=== PATIENT | male | born 1960 | race Caucasian/White ===

== ENCOUNTER 2020-05-19 05:21 | Observation (INO) | payer MEDICARE, SELFPAY ==
[2020-05-19] VITALS (9 sets, daily range): BP systolic 100–163; BP diastolic 56–129; PULSE 76–93; RESP 12–24; TEMP 36.6–37.5; O2SAT 93–99; BMI 43.2; BMI 43.3
--- NOTE | 2020-05-19 | FLU_PTH ---
PATIENT: MORENO GARCIA LOC: MS3 U#:[id number] AGE/SX: 60/M ROOM: HI325 RE05/19/[address]: Dr. Yves Garcia DO : 1960 BED: 1 DIS: 05/23/2020 SPEC #: [id number] RECD: 05/19/20 14:08 STATUS: SONIA NAM #: [id number] INES: 05/19/20 00:[address]: Darrion Manuel DEPT: CYTOLOGY RECD BY: Tamiko Camara ENTERED: 05/22/20 07:13 SP TYPE: Fluid OTHR DR: MD Dr. Guerrero Guevara MD Dr. Joseph Agyepong, MD Ryan Baltes, NP-C Tissues: PARACENTESIS FLUID Procedures: Special Stain Group II Surgery Specimen Level IV Cytospin Fluid HEADER OPERATION: Ultrasound-guided right paracentesis PRE-OP DIAGNOSIS: Dyspnea TISSUE SUBMITTED: Paracentesis fluid for cytology DIAGNOSIS CYTOLOGY Paracentesis fluid for cytology (cytospin and cell block): Negative for malignant cells. See comment. IESHA:nallely 05/23/2020 COMMENT Clinical correlation and appropriate follow up are necessary. CYTOLOGY STUDY Slides are reviewed. CYTOLOGY GROSS Received is 80 ml of maria del rosario, cloudy fluid labeled with the patient's name and and designated per the requisition as paracentesis. Submitted for cytology preparation including cell block. / nallely 05/22/2020 TC:5 CPT: 92265, 28983
--- NOTE | 2020-05-19 05:31 | US_ITS ---
PROCEDURE: Ultrasound guided paracentesis. DATE OF EXAMINATION: 05/19/2020. INDICATION: Male, 60 years old. Ascites. PHYSICIAN: Guerrero Mcpherson M.D. TECHNIQUE: The risks, benefits, and alternatives to the procedure were explained to the patient. The specific risks of bleeding, infection, and damage to bowel were detailed and accepted. Witnessed informed consent was obtained. The abdomen was ultrasonographically surveyed. An appropriate pocket of fluid was identified at the right lower quadrant. The skin were cleaned and prepped in the usual sterile fashion. Using ultrasound guidance, the peritoneal cavity was accessed with a 5-Belarusian paracentesis needle/catheter system. The trocar was removed. A total of 4500 ml of maria del rosario-colored fluid were removed from the peritoneal cavity. A 100 mL sample was sent to laboratory for analysis. The catheter was removed and a sterile dressing was applied. The procedure was well tolerated. US/Paracentesis with US IMPRESSION: Ultrasound guided paracentesis. Electronically Signed: Guerrero Mcpherson, at 14:40 EST , Service support ,
--- NOTE | 2020-05-19 05:34 | HP.PCM_ITS ---
Problem List (1) Dyspnea Status: Acute (2) End stage liver disease Status: Acute History of Present Illness Date of Admission: 05/19/20 Chief Complaint: Dyspnea History was obtained from emergency department doctor at [facility] and from patient's via phone as patient is lethargic and unable to articulate a consistent and reliable history. Patient is a 60-year-old male with a significant history of endstage; Liver disease; prediabetes/diabetes; former tobacco abuse; obstructive sleep apnea and on hospice who presents to the [facility] emergency department with shortness of breath. Patient was made hospice about a day ago. Patient was sent to the ED by the squad. His symptoms started on the same day of presentation. Hospice started patient on oxygen. Also patient was confused above his baseline and he was stumbling while going to the bathroom. His links his increased confusion with Ambien which was given to him. Patient typically has insomnia and drink alcohol to aid him sleep. Within a week he drinks about a bottle of whiskey. Hospice was planning to help patient schedule an outpatient paracentesis but with his shortness of breath hospice team wanted patient to get paracentesis as soon as possible. Because [facility] ED cannot provide a paracentesis even if patient was to stay over a decision was made to transfer patient to our hospital ([facility]). At [facility] reportedly patient's potassium was 2.8. Calcium was 6.8. Magnesium was 0.9. BNP was 363. His ammonia level was less than 10. His lipase was 216. Chest x-ray was negative. Patient received replacement of depleted electrolyte. Emergency department doctor reports bedside ultrasound of ascites. His white count was 4.8. His hemoglobin was 9.7 and his platelet was 50. Patient has lower body swelling which includes scrotum; and bilateral lower extremities. Patient is on spironolactone at home. Patient was started on Macrobid about a week ago for UTI. Patient does not take his Macrobid accurately as prescribed. He still has 7 capsules of the Macrobid left. His reported that Hospice has diagnosed patient with cellulitis of b ilateral feet. Emergency department doctor believes that patient has venous stasis and not cellulitis. The patient's report that Hospice is waiting for sensitivities from urine culture to know which antibiotics to start for cellulitis. Urine culture was sent by the patient's PCP. Patient's does not know results of urine culture yet. Emergent department doctor reported that bedside ultrasound showed ascitic fluid. reports that in March 2020 CT showed liver mass/tumor. MRI was recommended at that time but patient declined MRI. ED doc who read portions of the interpretation of CT abdomen done in March [address] showed echogenic and cirrhotic liver. Past Medical History Medical History: Medical History (Last Updated 05/19/20 @ 05:[address] Haider Lange MD) End stage liver disease K72.90 Allergies acetaminophen [From Tylenol] Adverse Reaction (Unknown, Verified 05/19/20 04:52) makes ears ring Home Medications: Ambulatory Orders Medication Instructions Recorded Carvedilol [Coreg] 25 mg PO BID 05/19/20 Milk Thistle 150 mg PO DAILY 05/19/20 Nitrofurantoin Macrocrystals 100 mg PO Q12 05/19/20 [Macrobid] Omeprazole 20 mg PO DAILY 05/19/20 Paroxetine HCl [Paxil] 30 mg PO QHS 05/19/20 Spironolactone [Aldactone] 25 mg PO BID 05/19/20 Zolpidem Tartrate [Ambien] 10 mg PO QHS 05/19/20 Surgical History: - - Bilateral knee arthroscopic surgery. Hernia repair x3. Abdominal muscle repair. Rotator cuff repair. Septoplasty. Carpal tunnel surgery x2. Finger tendon repair. Psychiatric History: Depression Smoking Status: Former smoker - Smoked when he was a teenager Alcohol: Heavy - *Family History Maternal History Items: - - Depression Paternal History Items: COPD, Diabetes Review of Systems Constitutional: Denies: Chills, Fever, Weight Change HEENT: Denies: Head Aches, Sinus Congestion, Sinus Drainage Cardiovascular: Denies: Chest Pain, Palpitations Respiratory: Reports: Shortness of Breath. Denies: Cough, Sputum production Gastrointestinal: Denies: Abdominal Pain, Nausea, Vomiting Genitourinary: Denies: Dysuria Musculoskeletal: Denies: Joint Pain, Joint Tenderness Skin: Denies: Rash, Wounds Neurological: Reports: Confusion. Denies: Focal weakness, Numbness, Tingling Psychiatric: Denies: Anxiety, Depression, Homicidal Ideations, Suicidal Ideations Hematologic/ Lymphatic: Denies: Easy Bruising, Easy Bleeding VTE Information - Inpt Only VTE Present on Admission: No VTE Mechan Device Prophylaxis: SCD's VTE Pharm Prophylaxis ordered?: No Patient Problems: Active and Suspected Problems (Last Updated 05/19/20 @ 05:[address] Haider Lange MD) Dyspnea (Acute) End stage liver disease (Acute) - Physical Exam Vitals/I&O's: Vital Signs Temp Pulse Resp BP Pulse Ox 97.8 F 76 24 H 163/129 H 99 05/19/20 04:48 05/19/20 04:48 05/19/20 04:48 05/19/20 04:48 05/19/20 04:48 Oxygen Flow Rate (L/min) 2 Oxygen Delivery Method Nasal Cannula Weight: 125.282 kg Body Mass Index (BMI) 43.2 General: Confused, - - Lethargic HEENT: EOMI, Normocephalic Oral: - - Mucosa with blood stains and black stains of teeth. Poor dentition Neck: Trachea Midline Lungs: Clear to auscultation, Normal air movement, Tachypneic Cardiovascular: Regular rate, No murmurs Abdomen: Bowel Sounds Present, Soft, Non Tender, Distended Extremities: Edema - Edema of scrotum and bilateral lower extremities Skin: - - Erythema of bilateral lower legs Musculoskeletal: No Tenderness to Palpation of Joints or Extremities Neurological: - - Lethargic. Slow to follow commands. Psych/Mental Status: - - Lethargic Current Medications Carvedilol (Carvedilol 25 Mg Tablet) 25 mg PO BID [facility] Nitrofurantoin Macrocrystals (Nitrofurantoin Macrocrystals 100 Mg Capsule) 100 mg PO Q12 [facility] Ondansetron HCl (Ondansetron 4 Mg/2 Ml Vial) 4 mg IV Q8H PRN PRN PRN Reason: NAUSEA/VOMITING Pantoprazole Sodium (Pantoprazole Sodium 20 Mg Tablet) 20 mg PO DAILY [facility] Paroxetine HCl (Paroxetine 10 Mg Tablet) 30 mg PO QHS [facility] Senna/Docusate Sodium (Senna/Docusate Sodium 1 Tablet) 2 tablet PO BID PRN PRN PRN Reason: Constipation Sodium Chloride (0.9% Saline Lock 10 Ml Syringe) 10 - 40 ml IV UD PRN PRN Reason: SALINE FLUSH Spironolactone (Spironolactone 25 Mg Tablet) 25 mg PO BID [facility] Assessment/Plan All Active Problems (Last Updated 05/19/20 @ 05:[address] Haider Lange MD) Dyspnea (Acute) End stage liver disease (Acute) Patient is a 60-year-old male with a significant history of endstage liver disease on hospice who presents to the outside hospital emergency department with dyspnea; lethargy after taking Ambien and with lower body edema and ultrasonographic findings of ascites. Dyspnea Patient with tachypnea but satting about 99% on 2 L/min of nasal cannula. Likely secondary to ascites from liver disease. Consult interventional radiology for paracentesis. Gram stain and culture of paracentesis to rule out SBP in the setting of confusion. However confusion could be explained by Ambien use. Therapeutic paracentesis ordered. Of note patient has thrombocytopenia. Check CBC; and PT/INR. Acute toxic encephalopathy likely secondary to Ambien. Hold Ambien. Avoid sedating medications Electrolyte abnormalities Electrolytes replaced at outside hospital. Check CBC and magnesium. UTI Continue patient on Macrobid. Venous stasis with venous stasis ulcers Continue spironolactone. Unclear why patient is not on Lasix too. Kerlix roll and Keenan wrap ordered. End-stage liver disease Spironolactone Paracentesis as above. Alcohol dependence: We will place on CIWA protocol with as needed Ativan. Thiamine; multivitamin and folic acid ordered. Obstructive sleep apnea Patient supposed to be on home CPAP/BiPAP however he does not use it. Will not resume in the hospital setting. As needed oxygen ordered. Prediabetes/diabetes mellitus: Reportedly diet controlled. In the setting of hospice will liberalize diet. CMP in a.m. Morbid obesity: Complicates care. On hospice. Liberalize diet and lifestyle. DVT prophylaxis: SCD OBSV E&M: 33195 Initial observation care L3
[2020-05-19] MEDS: hydrALAZINE 20 MG/ML Vial 5 MG IV ×2 (06:07→21:06)
[2020-05-19] MEDS: 0.9% Saline Lock 10 ML Syringe IV ×7 (06:08→23:20)
[2020-05-19] MEDS: Nystatin Ointment 1 APPLIC TOPICAL ×2 (06:27→20:51)
[2020-05-19] MEDS: Menthol/Lanolin/Calamine/Znox 113 GM Tube 1 APPLIC TOPICAL ×2 (06:28→20:51)
--- NOTE | 2020-05-19 06:32 | PCS.PANDOC ---
PANDEMIC DOCUMENTATION INITIATED: Date: 05/19/20 Time: 6875
[2020-05-19 07:14] LABS: Absolute Neutrophil Count 3.4 X10^3/uL (2.0-7.7); Basophil# 0.04 X10^3/uL; Basophil% 0.8 % (0-1); Eosinophil# 0.06 X10^3/uL; Eosinophils% 1.1 % (0-5); Hematocrit 25.7 % (40-54); Mean Corpuscular Hgb 33.2 pg (27.0-32.0); Mean Corpuscular Volume 94.8 fL (80-94); Mean Platelet Vol. 11.2 fl (6.2-12.0); Monocyte# 0.72 X10^3/uL; Monocyte% 13.7 % (0-10); NRBC Flagged by Analyzer 0 % (0-5); Neutrophil % 64.8 % (47-70); POSITIVE COUNT YES; POSITIVE MORPHOLOGY YES; Platelet Count 50 K/mm3 (150-450); RBC Distribution Width CV 20.8 % (11.6-14.6); Red Blood Count 2.71 M/mm3 (4.6-6.2); White Blood Count 5.3 K/mm3 (4.4-11.0)
[2020-05-19 07:16] LABS: Differential Indicated SCAN CRITERIA MET
[2020-05-19 07:30] LABS: International Normalized Ratio 2.2; Prothrombin Time (Protime)PT. 23.6 SECONDS (11.7-14.9)
[2020-05-19 07:47] LABS: Anisocytosis 1+; Hypochromasia 2+; Platelet Estimate MKD DEC (ADEQ)
[2020-05-19 07:49] LABS: ALB/GLOB Ratio 0.4 RATIO (0.9-2.4); AST(SGOT) 113 U/L (15-37); Alanine Aminotransfer ALT/SGPT 24 U/L (16-61); Alkaline Phosphatase 130 U/L (45-117); Anion Gap 11 (5-15); BUN 4 mg/dL (7-18); BUN/Creat Ratio 6.7 RATIO (10-20); Calcium,Total 7.7 mg/dL (8.5-10.1); Chloride 102 mmol/L (98-107); EST Glomerular Filtration Rate 147 mL/min (>60); Est Glom Filt Rate - Afr Amer 178 mL/min (>60); Estimated Creatinine Clearance 122.41 ml/min; Globulin 5.2 g/dL (2.2-4.2); Glucose 92 mg/dL (74-106); Potassium 3.4 mmol/L (3.5-5.1); Protein, Total 7.2 g/dL (6.4-8.2); Sodium Level 140 mmol/L (136-145)
--- NOTE | 2020-05-19 09:05 | CASEMGMT ---
Addendum entered by Joanne Byrd 05/19/20 14:40: LOIS updated that pt's is at [facility] and signed DNR form and requests inpatient hospice. LIOS placed a call to [facility] and spoke with ZIA Page. LOIS updated Kaylee that DNR has been signed and pt's is requesting inpatient hospice. Kaylee states physician will need to call Dr. Jenkins at [facility] ([phone]). Kaylee states she will also need updated clinicals. LOIS updated Charge Nurse who updated physician to call Dr. Jenkins. SW faxed updated clinicals to [facility]. Original Note: Social Work Note Pt is Hospice pt. Physician mentioned pt going to inpatient hospice. LOIS placed a call to [facility] and spoke with ZIA Page. Kaylee states pt was from home with Hospice until he revoked to get paracentesis. Kaylee states she will need to check to see when pt revoked hospice because if it was before midnight then can resume care today but if it was after midnight, they wouldn't be able to start care today. LOIS updated Kaylee that physician mentioned inpatient unit. Kaylee states pt would've been able to admit to inpatient unit if pt had signed DNR. Kaylee states pt wouldn't sign DNR, so pt was unable to admit to inpatient unit. RN states if pt were to sign DNR, pt could admit to inpatient unit as long as physicians would communicate (Hospital physician and Hospice physician). LOIS updated RN and Charge Nurse. Joanne Byrd MAG[employer]IZER, [employer]ISSIONER [employer]
[2020-05-19] MEDS: Multivitamins,Ther W-Minerals Tablet 1 TABLET PO (09:26)
[2020-05-19] MEDS: Carvedilol 25 MG Tablet PO ×2 (09:26→20:50)
[2020-05-19] MEDS: Folic Acid 1 MG Tablet PO (09:26)
[2020-05-19] MEDS: Pantoprazole Sodium 20 MG Tablet PO (09:26)
[2020-05-19] MEDS: Thiamine Hydrochloride 100 MG Tablet PO ×2 (09:26→17:18)
[2020-05-19] MEDS: Spironolactone 25 MG Tablet PO ×2 (09:26→20:50)
[2020-05-19] MEDS: Nitrofurantoin Macrocrystals 100 MG Capsule PO ×2 (09:33→20:50)
[2020-05-19 14:16] LABS: Cytology, Body Fluid / CSF SEE PATHOLOGY REPORT
[2020-05-19 14:53] LABS: Body Fluid Mononuclear WBC # 0.162 10^3/uL; Body Fluid Total Cells Counted 0.252 10^3/ul; Red Cell Count/Body Fluid 0.003 10^6/ul; White Blood Count/Body Fluid 0.182 10^3/uL
[2020-05-19 14:54] LABS: Auto B Fluid Analyzer BKGD Ct COUNTS W/IN LIMITS (W/IN LIMITS)
[2020-05-19 14:55] LABS: Appearance/Body Fluid SL CLDY; Color/Body Fluid YELLOW; Source- Body Fluid OTHER
--- NOTE | 2020-05-19 15:10 | DCINST_ITS ---
- Discharge Diagnoses Current Active Problems: Current Active and Chronic Problems (Last Updated 05/19/20 @ 05:[address] Haider Lange MD) Dyspnea (Acute) End stage liver disease (Acute) You will use the following diet at home:: Cardiac, Fluid restricted (specify 2000 mls, 1500 mls) Allergies/Adverse Reactions: Allergies acetaminophen [From Tylenol] Adverse Reaction (Unknown, Verified 05/19/20 04:52) makes ears ring Medications to take at Discharge Carvedilol [Coreg] 25 mg PO BID 05/19/20 Milk Thistle 150 mg PO DAILY 05/19/20 Nitrofurantoin Macrocrystals [Macrobid] 100 mg PO Q12 05/19/20 Omeprazole 20 mg PO DAILY 05/19/20 Paroxetine HCl [Paxil] 30 mg PO QHS 05/19/20 Spironolactone [Aldactone] 25 mg PO BID 05/19/20 Zolpidem Tartrate [Ambien] 10 mg PO QHS 05/19/20 Primary Care Physician: Ángel Sánchez [employer], [employer] [Primary Care Provider] - Test Results: Test results from this visit will be discussed in further detail at your follow- up appointment, if applicable.
--- NOTE | 2020-05-19 15:11 | PCM.PN.HOSP ---
Patient Problems: Active and Suspected Problems (Last Updated 05/19/20 @ 05:[address] Haider Lange MD) Dyspnea (Acute) End stage liver disease (Acute) Reason for Visit: Follow-up for decompensated cirrhosis, end-stage liver disease with massive ascites, hepatic encephalopathy, sarcopenia. Objective: Patient is lethargic and has thick was difficult to understand. History taken in the presence of ZIA Gates. Patient still drinks about 1 bottle of whiskey every day and keep his anxiety down. He does not want to quit. He has massive ascites with mild shortness of breath. Cannot lay flat, orthopnea. He has hospice service who has visited 3 times in last 1 week. He was transferred from [facility] for paracentesis mainly therapeutic. End-stage liver disease, decompensated cirrhosis with ascites, hepatic encephalopathy, sarcopenia, hypoalbuminemia, coagulopathy and thrombocytopenia. Matthias: General: Alert, Oriented x3, Cooperative HEENT: Atraumatic, PERRLA, EOMI, Normocephalic Oral: No Gingival or Mucosal Lesions/ Ulcerations Neck: Supple, No JVD, Negative Carotid Bruits Lungs: Air entry diminished in bilateral lung bases. Clinically seems bilateral small pleural effusion no crepitation/rhonchi Cardiovascular: Regular rate, Regular Rhythm, Normal S1, Normal S2, No murmurs Abdomen: Bowel Sounds Present, Soft, Non Tender, Non-Distended : No renal angle tenderness. No suprapubic tenderness. Extremities: No edema, Capillary Refill Less than 3 Seconds Skin: No rashes, No breakdown Musculoskeletal: Diffuse loss of muscles in extremities. Loss of subcutaneous fat. No Tenderness to Palpation of Joints or Extremities Neurological: Cranial nerves II-XII grossly intact, nonfocal neuro exam. Psych/Mental Status: Drowsy and lethargic. Vitals/I&O's: Vital Signs Temp Pulse Resp BP Pulse Ox 99.5 F H 82 18 100/56 L 93 05/19/20 14:40 05/19/20 14:40 05/19/20 14:40 05/19/20 14:40 05/19/20 14:40 Oxygen Flow Rate (L/min) 2 Oxygen Delivery Method Nasal Cannula Weight: 276 lb 3.192 oz Body Mass Index (BMI) 43.2 Intake and Output for Last 24 Hours 05/17/20 05/18/20 05/19/20 23:59 23:59 23:59 Intake Total 50.5 / 50.5 Balance 50.5 / 50.5 Laboratory Results 05/19/20 06:54: WBC 5.3, RBC 2.71 L, Hgb 9.0 L, Hct 25.7 L, MCV 94.8 H, MCH 33.2 H, MCHC 35.0, RDW Std Deviation 69.0 H, RDW Coeff of Bob 20.8 H, Plt Count 50 L*, MPV 11.2, Immature Gran % (Auto) 0.600, Neut % (Auto) 64.8, Lymph % (Auto) 19.0, Duchesne % (Auto) 13.7 H, Eos % (Auto) 1.1, Baso % (Auto) 0.8, Absolute Neuts (auto) 3.4, Absolute Lymphs (auto) 1.00, Nucleated RBC % 0, Platelet Estimate MKD DEC, Hypochromasia 2+, Anisocytosis 1+ 05/19/20 06:54: PT 23.6 H, INR 2.2 05/19/20 06:54: Sodium 140, Potassium 3.4 L, Chloride 102, Carbon Dioxide 27.0, Anion Gap 11, BUN 4 L, Creatinine 0.60 L, Estim Creat Clear Calc 122.41, Est GFR (MDRD) Af Amer 178, Est GFR (MDRD) Non-Af 147, BUN/Creatinine Ratio 6.7 L, Glucose 92, Calcium 7.7 L, Total Bilirubin 2.70 H, AST 113 H, ALT 24, Alkaline Phosphatase 130 H, Total Protein 7.2, Albumin 2.0 L, Globulin 5.2 H, Albumin/Globulin Ratio 0.4 L 05/19/20 08:44: Fluid Glucose Pending, Fluid Total Protein Pending 05/19/20 08:46: Miscellaneous Test Pending 05/19/20 14:13: Miscellaneous Cytology Pending 05/19/20 14:13: Fluid Source OTHER, Fluid Color YELLOW, Fluid Appearance SL CLDY, Fluid WBC 0.182, Fluid RBC 0.003, Fluid Tot Cell Count 0.252, Fld Polynuclear WBCs # 0.020, Fld Polynuclear WBCs % 11.0, Fluid Mononuclear WBCs 0.162, Fld Mononuclear WBCs % 89.0, Fl Pathologist Comment May follow, Fluid Comment 2 Pending Current Medications Calamine/Phenol (Menthol/Lanolin/Calamine/Znox 113 Gm Tube) 1 applic TOPICAL BID [facility]; Protocol Last Admin: 05/19/20 06:28 Dose: 1 applicatio Documented by: Carvedilol (Carvedilol 25 Mg Tablet) 25 mg PO BID [facility] Last Admin: 05/19/20 09:26 Dose: 25 mg Documented by: Folic Acid (Folic Acid 1 Mg Tablet) 1 mg PO DAILY@0800 [facility] Stop: 05/21/20 08:01 Last Admin: 05/19/20 09:26 Dose: 1 mg Documented by: Hydralazine HCl (Hydralazine 20 Mg/Ml Vial) 5 mg IV Q6H PRN PRN PRN Reason: SBP > 160 OR DBP > 120 Last Admin: 05/19/20 06:07 Dose: 5 mg Documented by: Lorazepam (Lorazepam 1 Mg Tablet) 2 mg PO Q2H PRN PRN; Protocol PRN Reason: CIWA score > 8 but <15 Lorazepam (Lorazepam 1 Mg Tablet) 2 mg PO UD PRN; Protocol PRN Reason: CIWA score >/=15. Lorazepam (Lorazepam 2 Mg/Ml Syringe) 2 mg IV Q2H PRN PRN; Protocol PRN Reason: CIWA score > 8 but <15 Lorazepam (Lorazepam 2 Mg/Ml Syringe) 2 mg IV UD PRN; Protocol PRN Reason: CIWA score >/=15. Multivitamins/Minerals (Multivitamins,Ther W-Minerals Tablet) 1 tablet PO DAILYCM [facility] Last Admin: 05/19/20 09:26 Dose: 1 tablet Documented by: Nitrofurantoin Macrocrystals (Nitrofurantoin Macrocrystals 100 Mg Capsule) 100 mg PO Q12 [facility] Last Admin: 05/19/20 09:33 Dose: 100 mg Documented by: Nutritional Formula (Lactose Free) (Ensure Enlive 120 Ml Liquid) 120 ml PO 4X/DAY [facility] Last Admin: 05/19/20 14:55 Dose: Not Given Documented by: Nystatin (Nystatin Ointment) 1 applic TOPICAL BID [facility]; Protocol Last Admin: 05/19/20 06:27 Dose: 1 applicatio Documented by: Ondansetron HCl (Ondansetron 4 Mg/2 Ml Vial) 4 mg IV Q8H PRN PRN PRN Reason: NAUSEA/VOMITING Pantoprazole Sodium (Pantoprazole Sodium 20 Mg Tablet) 20 mg PO DAILY [facility] Last Admin: 05/19/20 09:26 Dose: 20 mg Documented by: Paroxetine HCl (Paroxetine 10 Mg Tablet) 30 mg PO QHS [facility] Senna/Docusate Sodium (Senna/Docusate Sodium 1 Tablet) 2 tablet PO BID PRN PRN PRN Reason: Constipation Sodium Chloride (0.9% Saline Lock 10 Ml Syringe) 10 - 40 ml IV UD PRN PRN Reason: SALINE FLUSH Last Admin: 05/19/20 10:40 Dose: 10 ml Documented by: Spironolactone (Spironolactone 25 Mg Tablet) 25 mg PO BID [facility] Last Admin: 05/19/20 09:26 Dose: 25 mg Documented by: Thiamine HCl ([facility] Hydrochloride 100 Mg Tablet) [facility] Stop: 05/21/20 17:01 Last Admin: 05/19/20 09:26 Dose: 100 mg Documented by: STROKE Vital Signs/Narrative: Vital Signs Temp Pulse Resp BP Pulse Ox 05/19/20 14:40 99.5 F H 82 18 100/56 L 93 Medical Necessity - Tobacco Use Smoking Status: Former smoker - Smoked when he was a teenager Assessment/Plan All Active Problems (Last Updated 05/19/20 @ 05:[address] Haider Lange MD) Dyspnea (Acute) End stage liver disease (Acute) Patient is a 60-year-old male with history of end-stage liver disease, decompensated cirrhosis with ascites, hepatic encephalopathy, home hospice care was admitted directly from [facility] for paracentesis for massive ascites. 1. Acute dyspnea secondary to massive ascites: On exam it seems patient has bilateral small to moderate pleural effusion. Patient had 4.5 L therapeutic paracentesis by IR Dr. Austin. WBC count is 182, RBC 3, 11% polymorphs, 89% mononuclear cells therefore SBP very unlikely. Fluid protein, glucose, fluid culture are pending. Chest x-ray portable ordered. 2. End-stage liver disease, cirrhosis with decompensated cirrhosis, hepatic encephalopathy, sarcopenia, colopathy, thrombocytopenia: Discussed with the palliative care Dr. Jenkins. Patient's Mrs. Mi Hoyt in agreement with inpatient hospice care. Patient will need peritoneal catheter for palliative reason. Started on Lasix and patient already on spironolactone. General surgery Dr. Ambriz is being consulted for peritoneal catheter. I talked to him. 3. Patient seems to have toxic, alcoholic and hepatic encephalopathy: Started on lactulose. Ativan only as needed for high CIWA score, withdrawal syndrome. 4. Electrolyte abnormalities 5. UTI: Patient's home Macrobid continued. 6. Venous stasis with ulcer on Kerlix roll and Keenan wrap bandage. On Lasix and spironolactone 7. Chronic alcohol use and dependence, alcoholic cirrhosis: 8. Obstructive sleep apnea: On oxygen. Patient not compliant with CPAP/BiPAP at home. 9. Diabetes mellitus type 2: Glucose is controlled mainly because of end-stage liver disease. 10. Even though his BMI is high 43.3 patient mainly has fluid weight from ascites and pleural effusion. He has diffuse muscle atrophy of extremities and loss of subcutaneous fat. DVT prophylaxis: SCD Total time of the visit including total time spent in counseling or coordination of care, (more than 50% of the total time, spent in obtaining medical information from nurses and other ancillary care providers,explaining to the patient about labs, imaging, diagnosis and management), question with consultants palliative and surgeon, review of labs and imaging is 30 minutes. Inpatient E&M: 62055 Subs Hosp L2
[2020-05-19 15:46] LABS: Body Fluid QC Type(s) BF2Q
[2020-05-19 16:18] LABS: Glucose, Body Fluid 102 mg/dL (40-70); Protein, Body Fluid 1.9 g/dL (Not Establ.)
[2020-05-19 16:36] LABS: Lymphocytes 17 %; Macrophages 33 %; Mesothelial Cells 9 %; Monocytes 30 %; Neutrophil (Segs) 11 %
--- NOTE | 2020-05-19 17:00 | RAD_ITS ---
STUDY: X-RAY CHEST REASON FOR EXAM: Male, 60 years old. B/L pleural effusion TECHNIQUE: Single AP portable view of the chest. COMPARISON: None. FINDINGS: The lungs are clear and expanded. There is no demonstrated pleural abnormality. Normal size heart. Normal mediastinum and mariza. Normal visualized pulmonary arteries. Normal visualized aortic arch and descending thoracic aorta. Normal visualized thoracic spine. Normal visualized ribs, clavicles, and shoulders. There is no demonstrated abnormality of the visualized soft tissue structures of the upper abdomen. RAD/Chest 1 View (Portable) IMPRESSION: Normal x-ray examination of the chest. Electronically Signed: Naldo Rodriguez MD at 17:14 EST Tel , Service support ,
[2020-05-19] MEDS: LORazepam 2 MG/ML Syringe IV ×3 (17:17→22:41)
[2020-05-19] MEDS: Haloperidol Lactate 5 MG/ML Vial IM (18:51)
[2020-05-19] MEDS: proMETHazine 25 MG/ML Syringe 12.5 MG IV (18:52)
[2020-05-19] MEDS: PARoxetine 10 MG Tablet 30 MG PO (20:50)
[2020-05-19] MEDS: proMETHazine 25 MG/ML Syringe 6.25 MG IV (23:20)
[2020-05-20] VITALS (7 sets, daily range): BP systolic 114–123; BP diastolic 51–75; PULSE 73–96; RESP 18–24; TEMP 36.2–36.8; O2SAT 93–95
[2020-05-20] MEDS: Haloperidol Lactate 5 MG/ML Vial IM ×2 (02:34→14:50)
[2020-05-20] MEDS: Albuterol 2.5 MG/3 ML VIAL.NEB. INHALATION ×2 (04:39→20:41)
[2020-05-20] MEDS: 0.9% Saline Lock 10 ML Syringe IV ×4 (06:31→17:12)
[2020-05-20] MEDS: LORazepam 2 MG/ML Syringe IV (06:32)
[2020-05-20 06:36] LABS: Magnesium 1.5 mg/dL (1.6-2.6)
[2020-05-20] MEDS: Furosemide 40 MG/4 ML Vial IV ×2 (06:46→17:12)
--- NOTE | 2020-05-20 08:33 | PCM.PN.HOSP ---
Patient Problems: Active and Suspected Problems (Last Updated 05/19/20 @ 05:[address] Haider Lange MD) Dyspnea (Acute) End stage liver disease (Acute) Reason for Visit: Follow-up for alcohol withdrawal, end-stage liver disease and encephalopathy Objective: Patient was agitated and restless yesterday evening and night and was given Haldol and lorazepam and currently he is sedated. Not responding. General: Dated, unresponsive to tactile and verbal stimuli. HEENT: Atraumatic, PERRLA, EOMI, Normocephalic Oral: No Gingival or Mucosal Lesions/ Ulcerations Neck: Supple, No JVD, Negative Carotid Bruits Lungs: Air entry diminished in bilateral lung bases. Clinically seems bilateral small pleural effusion no crepitation/rhonchi Cardiovascular: Regular rate, Regular Rhythm, Normal S1, Normal S2, No murmurs Abdomen: Large distended ascites bowel Sounds Present, Soft, Non Tender, Non-Distended : No renal angle tenderness. No suprapubic tenderness. Extremities: No edema, Capillary Refill Less than 3 Seconds Skin: No rashes, No breakdown Musculoskeletal: Diffuse loss of muscles in extremities. Loss of subcutaneous fat. No Tenderness to Palpation of Joints or Extremities Neurological: Nonfocal exam. Psych/Mental Status: Unconscious unresponsive Vitals/I&O's: Vital Signs Temp Pulse Resp BP Pulse Ox 98.2 F 93 18 123/65 H 94 05/20/20 06:25 05/20/20 06:25 05/20/20 06:25 05/20/20 06:25 05/20/20 06:25 Oxygen Flow Rate (L/min) 3 Oxygen Delivery Method [3] Room Air Oxygen Delivery Method [2] Room Air Oxygen Delivery Method [1 ( Room Air Initial Baseline)] Oxygen Delivery Method Nasal Cannula Weight: 276 lb 3.192 oz Body Mass Index (BMI) 43.2 Intake and Output for Last 24 Hours 05/18/20 05/19/20 05/20/20 23:59 23:59 23:59 Intake Total 450.5 / 450.5 0 / 0 Output Total 9225 / 9225 170 / 170 Balance -8774.5 / -8774.5 -170 / -170 Microbiology Past 72 Hours 05/19/20 13:45 Fluid - Paracentesis (Abd) Gram Stain - Final Laboratory Results 05/19/20 06:54: Diff Path Review May foll 05/19/20 08:44: Fluid Glucose 102 H, Fluid Total Protein 1.9 05/19/20 08:46: Miscellaneous Test Pending 05/19/20 14:13: Miscellaneous Cytology Pending 05/19/20 14:13: Fluid Source OTHER, Fluid Color YELLOW, Fluid Appearance SL CLDY, Fluid WBC 0.182, Fluid RBC 0.003, Fluid Tot Cell Count 0.252, Fld Polynuclear WBCs # 0.020, Fld Polynuclear WBCs % 11.0, Fluid Mononuclear WBCs 0.162, Fld Mononuclear WBCs % 89.0, Fluid Neutrophils 11, Fluid Lymphocytes 17, Fluid Monocytes 30, Fluid Macrophages 33, Fld Mesothelial Cells 9, Fl Pathologist Comment May follow, Fluid Comment 2 Not Reportable 05/20/20 05:58: Magnesium 1.5 L Current Medications Albuterol Sulfate (Albuterol 2.5 Mg/3 Ml Vial.Neb.) 2.5 mg INHALATION Q2H PRN PRN PRN Reason: WHEEZES/SOB Last Admin: 05/20/20 04:39 Dose: 2.5 mg Documented by: Calamine/Phenol (Menthol/Lanolin/Calamine/Znox 113 Gm Tube) 1 applic TOPICAL BID COUNT INCLUDES [facility]; Protocol Last Admin: 05/19/20 20:51 Dose: 1 applicatio Documented by: Carvedilol (Carvedilol 25 Mg Tablet) 25 mg PO BID COUNT INCLUDES [facility] Last Admin: 05/19/20 20:50 Dose: 25 mg Documented by: Folic Acid (Folic Acid 1 Mg Tablet) 1 mg PO DAILY@0800 COUNT INCLUDES THE [facility] Stop: 05/21/20 08:01 Last Admin: 05/20/20 08:06 Dose: Not Given Documented by: Furosemide (Furosemide 40 Mg/4 Ml Vial) 40 mg IV DAILY COUNT INCLUDES [facility] Last Admin: 05/20/20 06:46 Dose: 40 mg Documented by: Haloperidol Lactate (Haloperidol Lactate 5 Mg/Ml Vial) 5 mg IM Q6H PRN PRN PRN Reason: Agitation/anxiety/restless Last Admin: 05/20/20 02:34 Dose: 5 mg Documented by: Hydralazine HCl (Hydralazine 20 Mg/Ml Vial) 5 mg IV Q6H PRN PRN PRN Reason: SBP > 180 OR DBP > 120 Last Admin: 05/19/20 21:06 Dose: 5 mg Documented by: Magnesium Sulfate 2 gm/ Sodium (Chloride) 104 mls @ 52 mls/hr IV X1 ONE Stop: 05/20/20 10:31 Lactulose (Lactulose 20 Gm/30 Ml Udc) 20 gm PO TID COUNT INCLUDES [facility] Last Admin: 05/20/20 06:31 Dose: Not Given Documented by: Lorazepam (Lorazepam 2 Mg/Ml Syringe) 2 mg IV Q2H PRN PRN; Protocol PRN Reason: CIWA score > 8 but <15 Last Admin: 05/19/20 21:06 Dose: 2 mg Documented by: Lorazepam (Lorazepam 2 Mg/Ml Syringe) 2 mg IV UD PRN; Protocol PRN Reason: CIWA score >/=15. Last Admin: 05/20/20 06:32 Dose: 2 mg Documented by: Multivitamins/Minerals (Multivitamins,Ther W-Minerals Tablet) [facility] Last Admin: 05/20/20 08:06 Dose: Not Given Documented by: Nitrofurantoin Macrocrystals (Nitrofurantoin Macrocrystals 100 Mg Capsule) 100 mg PO Q12 COUNT INCLUDES [facility] Last Admin: 05/19/20 20:50 Dose: 100 mg Documented by: Nutritional Formula (Lactose Free) (Ensure Enlive 120 Ml Liquid) 120 ml PO 4X/DAY COUNT INCLUDES [facility] Last Admin: 05/19/20 20:49 Dose: Not Given Documented by: Nystatin (Nystatin Ointment) 1 applic TOPICAL BID COUNT INCLUDES [facility]; Protocol Last Admin: 05/19/20 20:51 Dose: 1 applicatio Documented by: Ondansetron HCl (Ondansetron 4 Mg/2 Ml Vial) 4 mg IV Q8H PRN PRN PRN Reason: NAUSEA/VOMITING Pantoprazole Sodium (Pantoprazole Sodium 20 Mg Tablet) 20 mg PO DAILY COUNT INCLUDES [facility] Last Admin: 05/19/20 09:26 Dose: 20 mg Documented by: Paroxetine HCl (Paroxetine 10 Mg Tablet) 30 mg PO QHS COUNT INCLUDES [facility] Last Admin: 05/19/20 20:50 Dose: 30 mg Documented by: Promethazine HCl (Promethazine 25 Mg/Ml Syringe) 6.25 mg IV Q6H PRN PRN PRN Reason: Agitation/anxiety Last Admin: 05/19/20 23:20 Dose: 6.25 mg Documented by: Senna/Docusate Sodium (Senna/Docusate Sodium 1 Tablet) 2 tablet PO BID PRN PRN PRN Reason: Constipation Sodium Chloride (0.9% Saline Lock 10 Ml Syringe) 10 - 40 ml IV UD PRN PRN Reason: SALINE FLUSH Last Admin: 05/20/20 06:46 Dose: 10 ml Documented by: Spironolactone (Spironolactone 25 Mg Tablet) 25 mg PO BID COUNT INCLUDES [facility] Last Admin: 05/19/20 20:50 Dose: 25 mg Documented by: Thiamine HCl (Thiamine Hydrochloride 100 Mg Tablet) [facility] Stop: 05/21/20 17:01 Last Admin: 05/20/20 08:06 Dose: Not Given Documented by: STROKE Vital Signs/Narrative: Vital Signs Temp Pulse Resp BP Pulse Ox 05/20/20 06:25 98.2 F 93 18 123/65 H 94 05/20/20 04:40 96 24 H 93 Medical Necessity - Tobacco Use Smoking Status: Former smoker - Smoked when he was a teenager Assessment/Plan All Active Problems (Last Updated 05/19/20 @ 05:[address] Haider Lange MD) Dyspnea (Acute) End stage liver disease (Acute) Patient is a 60-year-old male with history of end-stage liver disease, decompensated cirrhosis with ascites, hepatic encephalopathy, home hospice care was admitted directly from [facility] for paracentesis for massive ascites. 1. Acute dyspnea secondary to massive ascites: On exam it seems patient has bilateral small to moderate pleural effusion. Patient had 4.5 L therapeutic paracentesis by IR Dr. Austin. WBC count is 182, RBC 3, 11% polymorphs, 89% mononuclear cells therefore SBP very unlikely. Fluid protein, glucose, fluid culture are pending. 05/20: Chest x-ray reported normal. 2. End-stage liver disease, cirrhosis with decompensated cirrhosis, hepatic encephalopathy, sarcopenia, colopathy, thrombocytopenia: Discussed with the palliative care Dr. Jenkins. Patient's Mrs. Mi Hoyt in agreement with inpatient hospice care. Patient will need peritoneal catheter for palliative reason. on Lasix and patient already on spironolactone. General surgery Dr. Ambriz is being consulted for peritoneal catheter. I talked to him. 05/20: Patient currently is 9.5 L negative fluid balance 3. Patient seems to have toxic, alcoholic and hepatic encephalopathy: Started on lactulose. Ativan only as needed for high CIWA score, withdrawal syndrome. Acute encephalopathy with agitation, delirium: Currently patient is unconscious unresponsive. Benzodiazepine discontinued. Haldol only for severe agitation. Lactulose enema 1 dose ordered. Discussed with the nursing staff 4. Electrolyte abnormalities: Follow-up electrolytes. 5. UTI: Patient's home Macrobid continued. 6. Venous stasis with ulcer on Kerlix roll and Keenan wrap bandage. On Lasix and spironolactone 7. Chronic alcohol use and dependence, alcoholic cirrhosis: 8. Obstructive sleep apnea: On oxygen. Patient not compliant with CPAP/BiPAP at home. 9. Diabetes mellitus type 2: Glucose is controlled mainly because of end-stage liver disease. 10. Even though his BMI is high 43.3 patient mainly has fluid weight from ascites and pleural effusion. He has diffuse muscle atrophy of extremities and loss of subcutaneous fat. DVT prophylaxis: SCD Total time of the visit including total time spent in counseling or coordination of care, (more than 50% of the total time, spent in obtaining medical information from nurses and other ancillary care providers,explaining to the patient about labs, imaging, diagnosis and management), question with consultants palliative and surgeon, review of labs and imaging is 30 minutes. Inpatient E&M: [id number] [facility] Hosp L2
[2020-05-20] MEDS: Nystatin Ointment 1 APPLIC TOPICAL ×2 (10:08→20:34)
[2020-05-20] MEDS: Menthol/Lanolin/Calamine/Znox 113 GM Tube 1 APPLIC TOPICAL ×2 (10:08→20:34)
[2020-05-20] MEDS: Lactulose 20 GM/30 ML UDC 200 GM RECTAL (15:47)
--- NOTE | 2020-05-20 16:36 | NURSING ---
ATTEMPTED LACTULOSE ENEMA ORDERED. PT ONLY TOLERATED APPROX 200ML. DR BALDWIN MADE AWARE.
[2020-05-20] MEDS: Ceftriaxone 1 GM/50 ML BAG IV (17:09)
[2020-05-20] MEDS: PARoxetine 10 MG Tablet 30 MG PO (20:29)
[2020-05-20] MEDS: Carvedilol 25 MG Tablet PO (20:33)
[2020-05-20] MEDS: Spironolactone 25 MG Tablet PO (20:54)
[2020-05-21] VITALS (8 sets, daily range): BP systolic 104–126; BP diastolic 50–73; PULSE 72–79; RESP 18–22; TEMP 36.5–36.7; O2SAT 93–98
[2020-05-21] MEDS: Haloperidol Lactate 5 MG/ML Vial 2 MG IM (02:49)
[2020-05-21] MEDS: 0.9% Saline Lock 10 ML Syringe IV (05:08)
[2020-05-21] MEDS: Lactulose 20 GM/30 ML UDC PO ×3 (05:08→21:24)
[2020-05-21] MEDS: Albuterol 2.5 MG/3 ML VIAL.NEB. INHALATION (05:21)
[2020-05-21 06:20] LABS: Anion Gap 4 (5-15); BUN 17 mg/dL (7-18); BUN/Creat Ratio 23.1 RATIO (10-20); Calcium,Total 7.5 mg/dL (8.5-10.1); Chloride 103 mmol/L (98-107); Creatinine, Serum 0.74 mg/dL (0.70-1.30); EST Glomerular Filtration Rate 115 mL/min (>60); Est Glom Filt Rate - Afr Amer 139 mL/min (>60); Estimated Creatinine Clearance 99.25 ml/min; Glucose 122 mg/dL (74-106); Magnesium 1.8 mg/dL (1.6-2.6); Sodium Level 142 mmol/L (136-145)
[2020-05-21 07:18] LABS: Phosphorus 1.5 mg/dL (2.5-4.9)
[2020-05-21] MEDS: Multivitamins,Ther W-Minerals Tablet 1 TABLET PO (07:47)
[2020-05-21] MEDS: Folic Acid 1 MG Tablet PO (07:48)
[2020-05-21] MEDS: Thiamine Hydrochloride 100 MG Tablet PO (07:48)
[2020-05-21] MEDS: Pantoprazole Sodium 20 MG Tablet PO (07:48)
[2020-05-21] MEDS: Spironolactone 25 MG Tablet PO ×2 (07:48→21:27)
[2020-05-21] MEDS: Carvedilol 25 MG Tablet PO ×2 (07:49→21:27)
[2020-05-21] MEDS: Nystatin Ointment 1 APPLIC TOPICAL ×2 (07:50→21:27)
[2020-05-21] MEDS: Furosemide 40 MG/4 ML Vial IV (07:50)
[2020-05-21] MEDS: Potassium Chloride 10mEq/100mL 10 MEQ/100 ML IV.SOLN. 100 MEQ IV BOLUS ×2 (09:34→10:40)
[2020-05-21] MEDS: Menthol/Lanolin/Calamine/Znox 113 GM Tube 1 APPLIC TOPICAL ×2 (10:34→21:25)
[2020-05-21] MEDS: Ceftriaxone 1 GM/50 ML BAG IV (11:56)
--- NOTE | 2020-05-21 15:39 | PCM.PN.HOSP ---
Patient Problems: Active and Suspected Problems (Last Updated 05/19/20 @ 05:[address] Haider Lange MD) Dyspnea (Acute) End stage liver disease (Acute) Objective: Patient is awake but chronic lethargic. Has dry mouth with crust in the oral mucosa as per the nursing staff. He denies any oral burning pain but his his speech is chronically not clear and difficult to understand Patient had 50% of his breakfast. Physical exam: General: Awake, lethargic. Responds to simple command HEENT: Atraumatic, PERRLA, EOMI, Normocephalic. Icterus present. Oral: Oral mucosa is dry and crusted. Neck: Supple, No JVD, Negative Carotid Bruits Lungs: Air entry diminished in bilateral lung bases. Bilateral small pleural effusion. No crepitations. Cardiovascular: Regular rate, Regular Rhythm, Normal S1, Normal S2, No murmurs Abdomen: Moderate ascites after large volume paracentesis. Soft, nontender. : No renal angle tenderness. No suprapubic tenderness. Extremities: Bilateral leg edema, Capillary Refill Less than 3 Seconds Skin: No rashes, No breakdown Musculoskeletal: No Tenderness to Palpation of Joints or Extremities Neurological: Cranial nerves II-XII grossly intact, no focal neurological deficit. Psych/Mental Status: Drowsy. Vitals/I&O's: Vital Signs Temp Pulse Resp BP Pulse Ox 98.1 F 76 20 H 126/73 H 93 05/21/20 14:32 05/21/20 14:32 05/21/20 14:32 05/21/20 14:32 05/21/20 14:32 Oxygen Flow Rate (L/min) 3.5 Oxygen Delivery Method [3] Room Air Oxygen Delivery Method [2] Room Air Oxygen Delivery Method [1 ( Room Air Initial Baseline)] Oxygen Delivery Method Nasal Cannula Weight: 276 lb 3.192 oz Body Mass Index (BMI) 43.2 Intake and Output for Last 24 Hours 05/19/20 05/20/20 05/21/20 23:59 23:59 23:59 Intake Total 450.5 / 450.5 154 / 229 475 / 475 Output Total 9225 / 9225 2220 / 2820 3225 / 3225 Balance -8774.5 / -8774.5 -2066 / -2591 -2750 / -2750 Microbiology Past 72 Hours 05/19/20 13:45 Fluid - Paracentesis (Abd) Gram Stain - Final 05/19/20 13:45 Fluid - Paracentesis (Abd) Body Fluid Culture - Preliminary No growth-Final to follow 05/19/20 13:45 Fluid - Paracentesis (Abd) Anaerobic Culture - Preliminary No growth in 48 hours. Laboratory Results 05/21/20 05:35: Sodium 142, Potassium 3.0 L, Chloride 103, Carbon Dioxide 35.0 H, Anion Gap 4 L, BUN 17, Creatinine 0.74, Estim Creat Clear Calc 99.25, Est GFR (MDRD) Af Amer 139, Est GFR (MDRD) Non-Af 115, BUN/Creatinine Ratio 23.1 H, Glucose 122 H, Calcium 7.5 L, Magnesium 1.8 05/21/20 05:35: Phosphorus 1.5 L Current Medications Albuterol Sulfate (Albuterol 2.5 Mg/3 Ml Vial.Neb.) 2.5 mg INHALATION Q2H PRN PRN PRN Reason: WHEEZES/SOB Last Admin: 05/21/20 05:21 Dose: 2.5 mg Documented by: Calamine/Phenol (Menthol/Lanolin/Calamine/Znox 113 Gm Tube) 1 applic TOPICAL BID [facility]; Protocol Last Admin: 05/21/20 10:34 Dose: 1 applicatio Documented by: Carvedilol (Carvedilol 25 Mg Tablet) 25 mg PO BID [facility] Last Admin: 05/21/20 07:49 Dose: 25 mg Documented by: Furosemide (Furosemide 40 Mg/4 Ml Vial) 40 mg IV DAILY [facility] Last Admin: 05/21/20 07:50 Dose: 40 mg Documented by: Haloperidol Lactate (Haloperidol Lactate 5 Mg/Ml Vial) 2 mg IM Q6H PRN PRN PRN Reason: Agitation/anxiety/restless Last Admin: 05/21/20 02:49 Dose: 2 mg Documented by: Hydralazine HCl (Hydralazine 20 Mg/Ml Vial) 5 mg IV Q6H PRN PRN PRN Reason: SBP > 180 OR DBP > 120 Last Admin: 05/19/20 21:06 Dose: 5 mg Documented by: Ceftriaxone Sodium (Rocephin) 1 gm in 50 mls @ 100 mls/hr IV Q24 [facility] Last Infusion: 05/21/20 12:38 Dose: Infused Documented by: Lactulose (Lactulose 20 Gm/30 Ml Udc) 20 gm PO TID [facility] Last Admin: 05/21/20 13:09 Dose: 20 gm Documented by: Multivitamins/Minerals (Multivitamins,Ther W-Minerals Tablet) [facility] Last Admin: 05/21/20 07:47 Dose: 1 tablet Documented by: Nutritional Formula (Lactose Free) (Ensure Enlive 120 Ml Liquid) 120 ml PO 4X/DAY [facility] Last Admin: 05/21/20 13:11 Dose: Not Given Documented by: Nystatin (Nystatin Ointment) 1 applic TOPICAL BID [facility]; Protocol Last Admin: 05/21/20 07:50 Dose: 1 applicatio Documented by: Pantoprazole Sodium (Pantoprazole Sodium 20 Mg Tablet) 20 mg PO DAILY [facility] Last Admin: 05/21/20 07:48 Dose: 20 mg Documented by: Paroxetine HCl (Paroxetine 10 Mg Tablet) 30 mg PO QHS [facility] Last Admin: 05/20/20 20:29 Dose: 30 mg Documented by: Promethazine HCl (Promethazine 25 Mg/Ml Syringe) 6.25 mg IV Q6H PRN PRN PRN Reason: Agitation/anxiety Last Admin: 05/19/20 23:20 Dose: 6.25 mg Documented by: Senna/Docusate Sodium (Senna/Docusate Sodium 1 Tablet) 2 tablet PO BID PRN PRN PRN Reason: Constipation Sodium Chloride (0.9% Saline Lock 10 Ml Syringe) 10 - 40 ml IV UD PRN PRN Reason: SALINE FLUSH Last Admin: 05/21/20 05:08 Dose: 10 ml Documented by: Spironolactone (Spironolactone 25 Mg Tablet) 25 mg PO BID [facility] Last Admin: 05/21/20 07:48 Dose: 25 mg Documented by: Thiamine HCl (Thiamine Hydrochloride 100 Mg Tablet) [facility] Stop: 05/21/20 17:01 Last Admin: 05/21/20 07:48 Dose: 100 mg Documented by: STROKE Vital Signs/Narrative: Vital Signs Temp Pulse Resp BP Pulse Ox 05/21/20 14:32 98.1 F 76 20 H 126/73 H 93 Medical Necessity - Tobacco Use Smoking Status: Former smoker - Smoked when he was a teenager Assessment/Plan All Active Problems (Last Updated 05/19/20 @ 05:[address] Haider Lange MD) Dyspnea (Acute) End stage liver disease (Acute) Patient is a 60-year-old male with history of end-stage liver disease, decompensated cirrhosis with ascites, hepatic encephalopathy, home hospice care was admitted directly from [facility] for paracentesis for massive ascites. 1. Acute dyspnea secondary to massive ascites: Patient had 4.5 L therapeutic paracentesis by IR Dr. Austin. WBC count is 182, RBC 3, 11% polymorphs, 89% mononuclear cells therefore SBP very unlikely. Fluid protein, glucose, fluid culture are pending. 05/20: Chest x-ray reported normal although clinically patient has small bilateral pleural effusion 2. End-stage liver disease, cirrhosis with decompensated cirrhosis, hepatic encephalopathy, sarcopenia, colopathy, thrombocytopenia: Discussed with the palliative care Dr. Jenkins. Patient's Mrs. Mi Hoyt in agreement with inpatient hospice care. Patient will need peritoneal catheter for palliative reason. on Lasix and patient already on spironolactone. General surgery Dr. Ambriz is being consulted for peritoneal catheter. 05/20: Patient currently is 9.5 L negative fluid balance 05/21: Lasix on hold for surgery, peritoneal catheter insertion. N.p.o. past midnight. 3. Patient seems to have toxic, alcoholic and hepatic encephalopathy: Started on lactulose. Ativan only as needed for high CIWA score, withdrawal syndrome. Acute encephalopathy with agitation, delirium: Currently patient is unconscious unresponsive. Benzodiazepine discontinued. Haldol only for severe agitation. Lactulose enema 1 dose given. Discussed with the nursing staff 05/21: No benzodiazepines. Lactulose titrate the dose as per encephalopathy drowsy and lethargic. 4. Electrolyte abnormalities: Follow-up electrolytes. Hypokalemia, hypomagnesemia and hypophosphatemia: Electrolytes are getting replaced. Patient also on spironolactone 25 mg twice daily 5. UTI: Patient's home Macrobid continued. 6. Venous stasis with ulcer on Kerlix roll and Keenan wrap bandage. On Lasix and spironolactone 7. Chronic alcohol use and dependence, alcoholic cirrhosis: 8. Obstructive sleep apnea: On oxygen. Patient not compliant with CPAP/BiPAP at home. 9. Diabetes mellitus type 2: Glucose is controlled mainly because of end-stage liver disease. 10. Even though his BMI is high 43.3 patient mainly has fluid weight from ascites and pleural effusion. He has diffuse muscle atrophy of extremities and loss of subcutaneous fat. DVT prophylaxis: SCD Total time of the visit including total time spent in counseling or coordination of care, (more than 50% of the total time, spent in obtaining medical information from nurses and other ancillary care providers,explaining to the patient about labs, imaging, diagnosis and management), question with consultants palliative and surgeon, review of labs and imaging is 30 minutes. Inpatient E&M: 13997 [facility] Hosp L2
[2020-05-21] MEDS: PARoxetine 10 MG Tablet 30 MG PO (21:25)
[2020-05-21] MEDS: BMX LIQUID 180 ML 10 ML PO (21:41)
[2020-05-22] VITALS (12 sets, daily range): BP systolic 106–121; BP diastolic 62–76; PULSE 72–87; RESP 16–18; TEMP 36.7–37.2; O2SAT 93–98; BMI 43.2
[2020-05-22] MEDS: 0.9% Saline Lock 10 ML Syringe IV ×2 (04:34→23:41)
[2020-05-22 06:56] LABS: Absolute Lymphocyte Count 1.07 X10^3/uL (0.83-4.51); Absolute Neutrophil Count 3.8 X10^3/uL (2.0-7.7); Basophil# 0.03 X10^3/uL; Basophil% 0.5 % (0-1); Eosinophil# 0.09 X10^3/uL; Eosinophils% 1.5 % (0-5); Hematocrit 25.8 % (40-54); Hemoglobin 8.8 g/dL (13.0-16.5); Lymphocyte # 1.07 X10^3/ul (4.0); Lymphocyte % 18.4 % (19-41); Mean Corp Hgb Conc 34.1 g/dL (32-36); Mean Corpuscular Volume 96.6 fL (80-94); Mean Platelet Vol. 10.7 fl (6.2-12.0); Monocyte# 0.76 X10^3/uL; Monocyte% 13.1 % (0-10); NRBC Flagged by Analyzer 0 % (0-5); Neutrophil # 3.84 X10^3/uL (2.7-7.7); Neutrophil % 66.2 % (47-70); POSITIVE COUNT YES; POSITIVE MORPHOLOGY YES; Platelet Count 55 K/mm3 (150-450); RBC Distribution Width SD 72.6 fl (35.1-43.9); Red Blood Count 2.67 M/mm3 (4.6-6.2); White Blood Count 5.8 K/mm3 (4.4-11.0)
[2020-05-22 07:06] LABS: Differential Indicated SCAN CRITERIA MET
[2020-05-22 07:16] LABS: International Normalized Ratio 2.3; Prothrombin Time (Protime)PT. 24.7 SECONDS (11.7-14.9)
[2020-05-22 07:17] LABS: Anion Gap 2 (5-15); BUN 15 mg/dL (7-18); BUN/Creat Ratio 21.3 RATIO (10-20); Calcium,Total 7.5 mg/dL (8.5-10.1); Chloride 103 mmol/L (98-107); EST Glomerular Filtration Rate 121 mL/min (>60); Est Glom Filt Rate - Afr Amer 147 mL/min (>60); Estimated Creatinine Clearance 104.92 ml/min; Glucose 106 mg/dL (74-106); Potassium 3.1 mmol/L (3.5-5.1); Sodium Level 141 mmol/L (136-145)
--- NOTE | 2020-05-22 07:40 | PCM.CONS.GEN ---
Problem List (1) End stage liver disease Status: Acute Reason for Consult Date of Consultation: 05/22/20 Reason for Consultation: Drainage catheter placement History of Present Illness: The patient is a 60 year old M here with uncontrolled ascites due to end-stage cirrhosis. I was contacted by the patient's hospice physician as well as hospitalist on Friday for discussion of a drainage catheter placement. The patient was confused I was unable to collect a history of present illness from him. Past Medical History Medical History: Medical History (Last Updated 05/19/20 @ 05:[address] Haider Lange MD) End stage liver disease K72.90 Allergies acetaminophen [From Tylenol] Adverse Reaction (Unknown, Verified 05/19/20 04:52) makes ears ring Home Medications: Ambulatory Orders Medication Instructions Recorded Carvedilol [Coreg] 25 mg PO BID 05/19/20 Milk Thistle 150 mg PO DAILY 05/19/20 Nitrofurantoin Macrocrystals 100 mg PO Q12 05/19/20 [Macrobid] Omeprazole 20 mg PO DAILY 05/19/20 Paroxetine HCl [Paxil] 30 mg PO QHS 05/19/20 Spironolactone [Aldactone] 25 mg PO BID 05/19/20 Zolpidem Tartrate [Ambien] 10 mg PO QHS 05/19/20 Surgical History: - - Bilateral knee arthroscopic surgery. Hernia repair x3. Abdominal muscle repair. Rotator cuff repair. Septoplasty. Carpal tunnel surgery x2. Finger tendon repair. Psychiatric History: Depression Smoking Status: Former smoker - Smoked when he was a teenager Alcohol: Heavy - *Family History Maternal History Items: - - Depression Paternal History Items: COPD, Diabetes Review of Systems Unable to obtain accurate/complete ROS d/t: Patient confusion Patient Problems: Active and Suspected Problems (Last Updated 05/19/20 @ 05:[address] Haider Lange MD) Dyspnea (Acute) End stage liver disease (Acute) - Physical Exam Vitals/I&O's: Vital Signs Temp Pulse Resp BP Pulse Ox 98.1 F 73 16 113/62 97 05/22/20 02:40 05/22/20 02:40 05/22/20 02:40 05/22/20 02:40 05/22/20 02:40 Oxygen Flow Rate (L/min) 3 Oxygen Delivery Method [3] Room Air Oxygen Delivery Method [2] Room Air Oxygen Delivery Method [1 ( Room Air Initial Baseline)] Oxygen Delivery Method Nasal Cannula Weight: 276 lb 3.192 oz Body Mass Index (BMI) 43.2 Intake and Output for Last 24 Hours 05/20/20 05/21/20 05/22/20 23:59 23:59 23:59 Intake Total 154 / 229 575 / 575 300 / 300 Output Total 2220 / 2820 3425 / 3425 525 / 525 Balance -2066 / -2591 -2850 / -2850 -225 / -225 General: Confused Lungs: Short of Breath Abdomen: Soft, Distended Neurological: Cranial nerves II-XII grossly intact Microbiology Past 72 Hours 05/21/20 20:00 Mucosa - Nasopharyngeal SARS-CoV-2 Antigen (Rapid) - Final 05/19/20 13:45 Fluid - Paracentesis (Abd) Gram Stain - Final 05/19/20 13:45 Fluid - Paracentesis (Abd) Body Fluid Culture - Preliminary No growth-Final to follow 05/19/20 13:45 Fluid - Paracentesis (Abd) Anaerobic Culture - Preliminary No growth in 48 hours. Laboratory Results 05/22/20 06:41: Sodium 141, Potassium 3.1 L, Chloride 103, Carbon Dioxide 36.0 H, Anion Gap 2 L, BUN 15, Creatinine 0.70, Estim Creat Clear Calc 104.92, Est GFR (MDRD) Af Amer 147, Est GFR (MDRD) Non-Af 121, BUN/Creatinine Ratio 21.3 H, Glucose 106, Calcium 7.5 L 05/22/20 06:41: WBC 5.8, RBC 2.67 L, Hgb 8.8 L, Hct 25.8 L, MCV 96.6 H, MCH 33.0 H, MCHC 34.1, RDW Std Deviation 72.6 H, RDW Coeff of Bob 22.0 H, Plt Count 55 L, MPV 10.7, Immature Gran % (Auto) 0.300, Neut % (Auto) 66.2, Lymph % (Auto) 18.4 L, [place] % (Auto) 13.1 H, Eos % (Auto) 1.5, Baso % (Auto) 0.5, Absolute Neuts (auto) 3.8, Absolute Lymphs (auto) 1.07, Nucleated RBC % 0 01/18/21 06:41: PT 24.7 H, INR 2.3 Current Medications Albuterol Sulfate (Albuterol 2.5 Mg/3 Ml Vial.Neb.) 2.5 mg INHALATION Q2H PRN PRN PRN Reason: WHEEZES/SOB Last Admin: 05/21/20 05:21 Dose: 2.5 mg Documented by: Calamine/Phenol (Menthol/Lanolin/Calamine/Znox 113 Gm Tube) 1 applic TOPICAL BID [facility]; Protocol Last Admin: 05/21/20 21:25 Dose: 1 applicatio Documented by: Carvedilol (Carvedilol 25 Mg Tablet) 25 mg PO BID [facility] Last Admin: 05/21/20 21:27 Dose: 25 mg Documented by: Furosemide (Furosemide 40 Mg/4 Ml Vial) 40 mg IV DAILY [facility] Last Admin: 05/21/20 07:50 Dose: 40 mg Documented by: Haloperidol Lactate (Haloperidol Lactate 5 Mg/Ml Vial) 2 mg IM Q6H PRN PRN PRN Reason: Agitation/anxiety/restless Last Admin: 05/21/20 02:49 Dose: 2 mg Documented by: Hydralazine HCl (Hydralazine 20 Mg/Ml Vial) 5 mg IV Q6H PRN PRN PRN Reason: SBP > 180 OR DBP > 120 Last Admin: 05/19/20 21:06 Dose: 5 mg Documented by: Ceftriaxone Sodium (Rocephin) 1 gm in 50 mls @ 100 mls/hr IV Q24 [facility] Last Infusion: 05/21/20 12:38 Dose: Infused Documented by: Lactulose (Lactulose 20 Gm/30 Ml Udc) 20 gm PO TID [facility] Last Admin: 05/22/20 04:56 Dose: Not Given Documented by: Lidocaine/Diphenhydr/Alum/Mg/Simeth (Bmx Liquid 180 Ml) 10 ml PO Q3H PRN PRN PRN Reason: oral burning pain Last Admin: 05/21/20 21:41 Dose: 10 ml Documented by: Multivitamins/Minerals (Multivitamins,Ther W-Minerals Tablet) 1 tablet PO DAILYCM [facility] Last Admin: 05/21/20 07:47 Dose: 1 tablet Documented by: Nutritional Formula (Lactose Free) (Ensure Enlive 120 Ml Liquid) 120 ml PO 4X/DAY [facility] Last Admin: 05/21/20 21:24 Dose: 120 ml Documented by: Nystatin (Nystatin Ointment) 1 applic TOPICAL BID [facility]; Protocol Last Admin: 05/21/20 21:27 Dose: 1 applicatio Documented by: Pantoprazole Sodium (Pantoprazole Sodium 20 Mg Tablet) 20 mg PO DAILY [facility] Last Admin: 05/21/20 07:48 Dose: 20 mg Documented by: Paroxetine HCl (Paroxetine 10 Mg Tablet) 30 mg PO QHS [facility] Last Admin: 05/21/20 21:25 Dose: 30 mg Documented by: Promethazine HCl (Promethazine 25 Mg/Ml Syringe) 6.25 mg IV Q6H PRN PRN PRN Reason: Agitation/anxiety Last Admin: 05/19/20 23:20 Dose: 6.25 mg Documented by: Senna/Docusate Sodium (Senna/Docusate Sodium 1 Tablet) 2 tablet PO BID PRN PRN PRN Reason: Constipation Sodium Chloride (0.9% Saline Lock 10 Ml Syringe) 10 - 40 ml IV UD PRN PRN Reason: SALINE FLUSH Last Admin: 05/22/20 04:34 Dose: 10 ml Documented by: Spironolactone (Spironolactone 25 Mg Tablet) 25 mg PO BID [facility] Last Admin: 05/21/20 21:27 Dose: 25 mg Documented by: Assessment/Plan All Active Problems (Last Updated 05/19/20 @ 05:[address] Haider Lange MD) Dyspnea (Acute) End stage liver disease (Acute) 60-year-old male with end-stage liver disease and uncontrolled ascites 1. I was contacted by the patient's hospitalist as well as his hospice physician to have a drainage catheter placed. The patient is currently under hospice care and needs palliative drainage catheter placed. I discussed abdominal Pleurx catheter placement with the patient's this morning. I discussed the risks including but not limited to bleeding, infection, injury to underlying bowel. The patient's was agreeable with the plan and she agreed to give consent. The patient has elevated INR and I will order a unit of FFP for him. His platelet count is 55 this morning. The patient has a complicated history of several hernia repairs as well as a large incision on his abdomen. I will try to find a space that is clear of mesh using ultrasound in the operating room and placed the catheter intra-abdominally for drainage. Monico Ambriz MD Pager: [facility] [address] [place] [address] Office:
[2020-05-22 07:47] LABS: Anisocytosis 1+
--- NOTE | 2020-05-22 07:47 | PN_ITS ---
Patient Problems: Active and Suspected Problems (Last Updated 05/19/20 @ 05:[address] Haider Lange MD) Dyspnea (Acute) End stage liver disease (Acute) Reason for Visit: Follow-up for end-stage liver disease, with decompensated cirrhosis. Objective: The patient was calm and quiet in the morning but got agitated in the afternoon. General: Awake, lethargic. Responds to simple command HEENT: Atraumatic, PERRLA, EOMI, Normocephalic. Icterus present. Oral: Oral mucosa is dry and crusted. Neck: Supple, No JVD, Negative Carotid Bruits Lungs: Air entry diminished in bilateral lung bases. Bilateral small pleural effusion. No crepitations. Cardiovascular: Regular rate, Regular Rhythm, Normal S1, Normal S2, No murmurs Abdomen: Mild ascites after large volume paracentesis. Soft, nontender. : No renal angle tenderness. No suprapubic tenderness. Extremities: Bilateral leg edema, Capillary Refill Less than 3 Seconds Skin: No rashes, No breakdown Musculoskeletal: No Tenderness to Palpation of Joints or Extremities Neurological: Cranial nerves II-XII grossly intact, no focal neurological de ficit. Psych/Mental Status: Drowsy. Vitals/I&O's: Vital Signs Temp Pulse Resp BP Pulse Ox 98.1 F 73 16 113/62 97 05/22/20 02:40 05/22/20 02:40 05/22/20 02:40 05/22/20 02:40 05/22/20 02:40 Oxygen Flow Rate (L/min) 3 Oxygen Delivery Method [3] Room Air Oxygen Delivery Method [2] Room Air Oxygen Delivery Method [1 ( Room Air Initial Baseline)] Oxygen Delivery Method Nasal Cannula Weight: 276 lb 3.192 oz Body Mass Index (BMI) 43.2 Intake and Output for Last 24 Hours 05/20/20 05/21/20 05/22/20 23:59 23:59 23:59 Intake Total 154 / 229 575 / 575 300 / 300 Output Total 2220 / 2820 3425 / 3425 525 / 525 Balance -2066 / -2591 -2850 / -2850 -225 / -225 Microbiology Past 72 Hours 05/21/20 20:00 Mucosa - Nasopharyngeal SARS-CoV-2 Antigen (Rapid) - Final 05/19/20 13:45 Fluid - Paracentesis (Abd) Gram Stain - Final 05/19/20 13:45 Fluid - Paracentesis (Abd) Body Fluid Culture - Preliminary No growth-Final to follow 05/19/20 13:45 Fluid - Paracentesis (Abd) Anaerobic Culture - Preliminary No growth in 48 hours. Laboratory Results 05/22/20 06:41: Sodium 141, Potassium 3.1 L, Chloride 103, Carbon Dioxide 36.0 H , Anion Gap 2 L, BUN 15, Creatinine 0.70, Estim Creat Clear Calc 104.92, Est GFR (MDRD) Af Amer 147, Est GFR (MDRD) Non-Af 121, BUN/Creatinine Ratio 21.3 H, Glucose 106, Calcium 7.5 L 05/22/20 06:41: WBC 5.8, RBC 2.67 L, Hgb 8.8 L, Hct 25.8 L, MCV 96.6 H, MCH 33.0 H, MCHC 34.1, RDW Std Deviation 72.6 H, RDW Coeff of Bob 22.0 H, Plt Count 55 L, MPV 10.7, Immature Gran % (Auto) 0.300, Neut % (Auto) 66.2, Lymph % (Auto) 18.4 L, [place] % (Auto) 13.1 H, Eos % (Auto) 1.5, Baso % (Auto) 0.5, Absolute Neuts (auto) 3.8, Absolute Lymphs (auto) 1.07, Nucleated RBC % 0 05/22/20 06:41: PT 24.7 H, INR 2.3 Current Medications Albuterol Sulfate (Albuterol 2.5 Mg/3 Ml Vial.Neb.) 2.5 mg INHALATION Q2H PRN PRN PRN Reason: WHEEZES/SOB Last Admin: 05/21/20 05:21 Dose: 2.5 mg Documented by: Calamine/Phenol (Menthol/Lanolin/Calamine/Znox 113 Gm Tube) 1 applic TOPICAL BID [facility]; Protocol Last Admin: 05/21/20 21:25 Dose: 1 applicatio Documented by: Carvedilol (Carvedilol 25 Mg Tablet) 25 mg PO BID [facility] Last Admin: 05/21/20 21:27 Dose: 25 mg Documented by: Furosemide (Furosemide 40 Mg/4 Ml Vial) 40 mg IV DAILY [facility] Last Admin: 05/21/20 07:50 Dose: 40 mg Documented by: Haloperidol Lactate (Haloperidol Lactate 5 Mg/Ml Vial) 2 mg IM Q6H PRN PRN PRN Reason: Agitation/anxiety/restless Last Admin: 05/21/20 02:49 Dose: 2 mg Documented by: Hydralazine HCl (Hydralazine 20 Mg/Ml Vial) 5 mg IV Q6H PRN PRN PRN Reason: SBP > 180 OR DBP > 120 Last Admin: 05/19/20 21:06 Dose: 5 mg Documented by: Ceftriaxone Sodium (Rocephin) 1 gm in 50 mls @ 100 mls/hr IV Q24 [facility] Last Infusion: 05/21/20 12:38 Dose: Infused Documented by: Potassium Chloride () 10 meq in 100 mls @ 100 mls/hr IV BOLUS Q1H [facility] Stop: 05/22/20 11:59 Lactulose (Lactulose 20 Gm/30 Ml Udc) 20 gm PO TID [facility] Last Admin: 05/22/20 04:56 Dose: Not Given Documented by: Lidocaine/Diphenhydr/Alum/Mg/Simeth (Bmx Liquid 180 Ml) 10 ml PO Q3H PRN PRN PRN Reason: oral burning pain Last Admin: 05/21/20 21:41 Dose: 10 ml Documented by: Multivitamins/Minerals (Multivitamins,Ther W-Minerals Tablet) 1 tablet PO DAILYCM [facility] Last Admin: 05/21/20 07:47 Dose: 1 tablet Documented by: Nutritional Formula (Lactose Free) (Ensure Enlive 120 Ml Liquid) 120 ml PO 4X/DAY [facility] Last Admin: 05/21/20 21:24 Dose: 120 ml Documented by: Nystatin (Nystatin Ointment) 1 applic TOPICAL BID [facility]; Protocol Last Admin: 05/21/20 21:27 Dose: 1 applicatio Documented by: Pantoprazole Sodium (Pantoprazole Sodium 20 Mg Tablet) 20 mg PO DAILY [facility] Last Admin: 05/21/20 07:48 Dose: 20 mg Documented by: Paroxetine HCl (Paroxetine 10 Mg Tablet) 30 mg PO QHS [facility] Last Admin: 05/21/20 21:25 Dose: 30 mg Documented by: Promethazine HCl (Promethazine 25 Mg/Ml Syringe) 6.25 mg IV Q6H PRN PRN PRN Reason: Agitation/anxiety Last Admin: 05/19/20 23:20 Dose: 6.25 mg Documented by: Senna/Docusate Sodium (Senna/Docusate Sodium 1 Tablet) 2 tablet PO BID PRN PRN PRN Reason: Constipation Sodium Chloride (0.9% Saline Lock 10 Ml Syringe) 10 - 40 ml IV UD PRN PRN Reason: SALINE FLUSH Last Admin: 05/22/20 04:34 Dose: 10 ml Documented by: Spironolactone (Spironolactone 25 Mg Tablet) 25 mg PO BID [facility] Last Admin: 05/21/20 21:27 Dose: 25 mg Documented by: Medical Necessity - Tobacco Use Smoking Status: Former smoker - Smoked when he was a teenager Assessment/Plan All Active Problems (Last Updated 05/19/20 @ 05:[address] Haider Lange MD) Dyspnea (Acute) End stage liver disease (Acute) Patient is a 60-year-old male with history of end-stage liver disease, decompensated cirrhosis with ascites, hepatic encephalopathy, home hospice care was admitted directly from [facility] for paracentesis for massive ascites. 1. Acute dyspnea secondary to massive ascites: Patient had 4.5 L therapeutic paracentesis by IR Dr. Austin. WBC count is 182, RBC 3, 11% polymorphs, 89% mononuclear cells therefore SBP very unlikely. Fluid protein, glucose, fluid culture are pending. 05/20: Chest x-ray reported normal although clinically patient has small bilateral pleural effusion 2. End-stage liver disease, cirrhosis with decompensated cirrhosis, hepatic encephalopathy, sarcopenia, colopathy, thrombocytopenia: Discussed with the palliative care Dr. Jenkins. Patient's Mrs. Mi Hoyt in agreement with inpatient hospice care. Patient will need peritoneal catheter for palliative reason. on Lasix and patient already on spironolactone. General surgery Dr. Ambriz is being consulted for peritoneal catheter. 05/20: Patient currently is 9.5 L negative fluid balance 05/21: Lasix on hold for surgery, peritoneal catheter insertion. N.p.o. past midnight. 05/22: Patient was taken to the OR but there was not sufficient ascites for Pleurx peritoneal catheter insertion. Patient was returned to the floor. Discussed with Dr. Lawson. Patient gets large ascites, he will arrange outpatient catheter placement. 3. Patient seems to have toxic, alcoholic and hepatic encephalopathy: Started on lactulose. Ativan only as needed for high CIWA score, withdrawal syndrome. Acute encephalopathy with agitation, delirium: Currently patient is unconscious unresponsive. Benzodiazepine discontinued. Haldol only for severe agitation. Lactulose enema 1 dose given. Discussed with the nursing staff 05/21: No benzodiazepines. Lactulose titrate the dose as per encephalopathy drowsy and lethargic. 05/22: Patient got dizzy during afternoon. Hydroxyzine ordered. 4. Electrolyte abnormalities: Follow-up electrolytes. Hypokalemia, hypomagnesemia and hypophosphatemia: Electrolytes are getting replaced. Patient also on spironolactone 25 mg twice daily 05/22: K3.1: Potassium ordered 5. Patient has recent history of UTI on Macrobid as an outpatient. Ceftriaxone was started empirically for possible SBP and/or UTI for 3 days. Ascites fluid culture showed no growth more than 48 hours. Ceftriaxone discontinued 6. Venous stasis with ulcer on Kerlix roll and Keenan wrap bandage. On Lasix and spironolactone 7. Chronic alcohol use and dependence, alcoholic cirrhosis: 8. Obstructive sleep apnea: On oxygen. Patient not compliant with CPAP/BiPAP at home. 9. Diabetes mellitus type 2: Glucose is controlled mainly because of end-stage liver disease. 10. Even though his BMI is high 43.3 patient mainly has fluid weight from ascites and pleural effusion. He has diffuse muscle atrophy of extremities and loss of subcutaneous fat. DVT prophylaxis: SCD Total time of the visit including total time spent in counseling or coordination of care, (more than 50% of the total time, spent in obtaining medical information from nurses and other ancillary care providers,explaining to the patient about labs, imaging, diagnosis and management), question with consultants palliative and surgeon, review of labs and imaging is 30 minutes. Discharge plan: Discharge to half-way maybe tomorrow a.m. Inpatient E&M: 75088 Subs Hosp L2
[2020-05-22 07:48] LABS: Platelet Estimate MOD DEC (ADEQ)
[2020-05-22] MEDS: Potassium Chloride 10mEq/100mL 10 MEQ/100 ML IV.SOLN. 100 MEQ IV BOLUS ×4 (09:02→13:34)
[2020-05-22] MEDS: Ceftriaxone 1 GM/50 ML BAG IV (10:33)
--- NOTE | 2020-05-22 11:39 | CASEMGMT ---
Addendum entered by Joanne Byrd 05/22/20 12:02: LOIS received call from Kaylee at [facility] stating Dr. Jenkins spoke with Dr. Ambriz, unable to get Pleurx Catheter placed. Kaylee states the only reason pt was able to admit to inpatient unit was with the Pleurx Catheter, Kaylee states pt now doesn't qualify for inpatient unit. Kaylee states pt will need to be placed at ECF with Hospice Services. LOIS asked Kaylee if Hospice spoke with pt's about how going to ECF with Hospice will be private pay for Room and Board and Kaylee states she doesn't think so. LOIS placed a call to pt's Mi, introduced self and role at [facility]. LOIS updated Mi that per [facility], pt no longer qualifies for inpatient unit as Pleurx Catheter was not able to be placed. LOIS explained options of home with Hospice vs ECF with Hospice. LOIS did explained that going to ECF with Hospice will require pt to pay privately for Room and Board until pt can become active with Medicaid. LOIS explained Medicaid process to Mi. Mi states she would like to think about, is not sure what to do. LOIS informed Mi that this worker will give Mi some time to think, will follow up with Mi later this afternoon. Mi states understanding. Original Note: Social Work Note Pt is to get Pleurx Catheter placed and then pt to discharge to inpatient hospice unit. LOIS placed a call to [facility] and spoke with Marlena in admissions. Marlena confirms pt is able to admit to inpatient hospice today after Pleurx Catheter is placed. Marlena states once discharge is in to give her a call. Plan: Inpatient Hospice Unit today Joanne Byrd OFFICE MACHINE SERVICE SUPERVISOR, BACK TENDER PAPER MACHINE
--- NOTE | 2020-05-22 11:42 | PCM.DC ---
- Discharge Diagnoses Current Active Problems: Current Active and Chronic Problems (Last Updated 05/19/20 @ 05:[address] Haider Lange MD) Dyspnea (Acute) End stage liver disease (Acute) You will use the following diet at home:: Cardiac Your food should be the consistency of: Regular Discharge Activity: May Not Drive Weight Bearing Status: Weight bearing as tolerated Call your doctor if you observe: Fever of 101 or Higher, Numbness or Tingling, Inability to urinate, Inability to have a bowel movement, Shortness of breath, Dizziness, Fainting spells, Chest pain, Prolonged hiccoughing, Increased palpitations (irregular heartbeat), Calf discomfort, Uncontrolled pain Additional Instructions: The patient is being discharged to inpatient hospice care under Dr. Jenkins Allergies/Adverse Reactions: Allergies acetaminophen [From Tylenol] Adverse Reaction (Unknown, Verified 05/19/20 04:52) makes ears ring Medications to take at Discharge Milk Thistle 150 mg PO DAILY 05/19/20 Omeprazole 20 mg PO DAILY 05/19/20 Paroxetine HCl [Paxil] 30 mg PO QHS 05/19/20 Spironolactone [Aldactone] 25 mg PO BID 05/19/20 Zolpidem Tartrate [Ambien] 10 mg PO QHS 05/19/20 Albuterol Aerosols [Ventolin Aerosols] 2.5 mg INHALATION Q2H PRN PRN vial.neb. 05/22/20 Bmx Liquid 10 ml PO Q3H PRN PRN ml 05/22/20 Carvedilol [Coreg (Beta Jet)] 25 mg PO BID #0 05/22/20 Furosemide [Lasix] 40 mg PO DAILY #30 tablet 05/22/20 Lactulose [Chronulac] 20 gm PO TID udc 05/22/20 Menthol/Lanolin/Calamine/Znox [Calmoseptine Ointment] 1 applic TOPICAL BID tube 05/22/20 Multivitamins,Ther W-Minerals [Multivitamin With Minerals (BKC)] 1 tablet PO DAILYCM tablet 05/22/20 Nystatin [Mycostatin] 1 applic TOPICAL BID tube 05/22/20 The following prescriptions were given: Furosemide [Lasix] 40 mg PO DAILY #30 tablet Primary Care Physician: Ángel Sánchez INSURANCE ACCOUNT MANAGER, INSURANCE ACCOUNT MANAGER-C [Primary Care Provider] - Please follow up with your Primary Care Physician in: in 2 weeks Test Results: Test results from this visit will be discussed in further detail at your follow-up appointment, if applicable.
--- NOTE | 2020-05-22 12:11 | PCM.PN.BLA ---
Progress Note The patient was brought back to the operating room and an ultrasound was performed. I was unable to localize a pocket of fluid to access with needle. It did not appear that the patient had a large amount of ascites. I discussed this with the patient's next of kin as well as the hospitalist. If the patient reaccumulates tense ascites I would like to be notified and I can schedule him for an outpatient catheter placement. Monico Ambriz MD Pager: [facility] [address] [place] [address], [address] [place] [address] Office: [facility] Vital Signs/Narrative: Vital Signs Temp Pulse Resp BP Pulse Ox 05/22/20 12:00 80 16 111/70 98 05/22/20 11:55 81 16 119/65 98 05/22/20 11:50 98.1 F 81 16 106/68 98 05/22/20 10:46 98.5 F 76 18 112/76 96 05/22/20 09:16 98.9 F 74 18 110/68 97 05/22/20 08:30 95
--- NOTE | 2020-05-22 12:42 | NURSING ---
Pt returned from [facility] was unable to have drain placed. He was a mac local. Spouse updated and present in room.
[2020-05-22] MEDS: Menthol/Lanolin/Calamine/Znox 113 GM Tube 1 APPLIC TOPICAL ×2 (12:54→21:39)
[2020-05-22] MEDS: Lactulose 20 GM/30 ML UDC PO ×2 (13:05→21:40)
[2020-05-22] MEDS: Nystatin Ointment 1 APPLIC TOPICAL ×2 (13:05→21:54)
[2020-05-22 13:15] LABS: Pathologist Comment/Body Fluid Reviewed
[2020-05-22 13:20] LABS: Pathologist Review Reviewed
--- NOTE | 2020-05-22 13:25 | CASEMGMT ---
Addendum entered by Joanne Byrd 05/22/20 15:46: LOIS received call from Emilie at [facility] stating they are not in network with pt's [employer]. LOIS explained that pt is coming to [facility] with Hospice. Emilie asked if pt has Medicaid. LOIS informed Emilie that pt's Mi is aware that since pt doesn't have Medicaid it will be private pay for Room & Board. Emilie states they require month up front, she will call pt's to discuss finances. Addendum entered by Joanne Byrd 05/22/20 14:45: LOIS received call from pt's Mi stating [facility] choices are [facility] and [facility], asked for clarification on payment for room and board. SW in to speak with Mi. LOIS updated Mi that [facility] is short term rehabilitation, pt not able to admit with Hospice. Mi states to try [facility]. LOIS also spoke with Mi again regarding payment. LOIS explained that from day one pt will need to pay privately for room and board until pt can get Medicaid. LOIS explained [facility] will pay for everything else. LOIS placed a call to [facility], admissions has left for the day. LOIS transferred to [facility] and provided referral. LOIS informed [facility] pt is medically ready for discharge today. [facility] states to fax referral to [phone]. LOIS faxed referral. Addendum entered by Joanne Byrd 05/22/20 13:54: LOIS received call from Kari at [facility] stating due to their COVID outbreak, they think it would be dangerous to bring pt to their facility at this time. Kari states if the pt's family want to transfer pt at a later time, within a week, or so they can reach out to [facility]. LOIS placed a call to pt's Mi and updated her. LOIS informed Mi that [facility] is not able to accept pt. LOIS encouraged Mi to review list of nursing facilities and to review Medicare Ratings. Mi states she will be back to pt's room and will review list. LOIS updated Mi that Kari at [facility] did state pt could transfer to [facility] later. SW to follow up with Mi. Original Note: Social Work Note Pt's Mi is present at [facility]. SW in to speak with pt and Mi. LOIS introduced self and role at [facility]. LOIS provided list of SNF in [facility] with Medicare Ratings. LOIS explained that they all take Hospice pt's, it just depends on bed availability and this worker will not know if they have beds available until a referral is made. Mi states first choice is [facility] as they are members of the amish. SW to make referral. LOIS placed a call to [facility] and spoke with Kari in admissions. LOIS provided referral. Kari states she thinks they are not taking admissions at this time, but will review referral and speak with administrators as pt/pt's go to their amish. LOIS faxed referral. [facility] pending acceptance Joanne Byrd LINE WORKER, PATIENT CARE PROVIDER
--- NOTE | 2020-05-22 16:25 | CASEMGMT ---
Social Work Note LOIS received call from pt's Mi stating she spoke with someone from [facility] and was encouraged to call pt's insurance to determine in network nursing homes. Mi states she called pt's insurance and was informed [facility] was in network and will pay for 20 days. LOIS explained that his insurance only pays if pt goes skilled, pt wouldn't be going to [facility] with Hospice then. Mi states oh well just go with [facility] then. LOIS informed Mi that this worker will call [facility] back and left staff know that Mi is still agreeable to [facility]. LOIS informed Mi that [facility] will likely follow up with Mi regarding payment. LOIS informed Mi that it will be unlikely that pt discharges today due to the time of day and at this time, no facility has accepted pt. Mi states understanding. LOIS placed a call to Sheila at [facility]. Sheila states she only has one male bed available and it is in the isolation/observation unit which will actually probably be better for pt so pt's is able to visit pt alone. Sheila states pt's will be able to visit pt for compassionate care and she will reach out to Mi to review hours. LOIS updated Sheila that Mi is still agreeable to [facility] and regardless where pt goes for mcc, pt will be private pay for room and board until pt gets Medicaid as pt is admitting with Hospice. Sheila states if they are Mi's choice then they are able to accept pt. Sheila states she prefers discharge tomorrow. LOIS updated physician, pt not able to discharge today to mcc. LOIS updated charge nurse, plan is for pt to admit to [facility] tomorrow with Hospice. Pt cannot have Haldol. Charge nurse aware. Plan: [facility] tomorrow with Hospice Joanne Byrd SUPPORT SERVICES REP, SECURITY PROFESSIONAL
[2020-05-22] MEDS: hydrOXYzine 50 MG/ML Vial IM (16:39)
[2020-05-22] MEDS: LORazepam 2 MG/ML Syringe 0.5 MG IV ×2 (19:29→23:41)
[2020-05-22] MEDS: Carvedilol 25 MG Tablet PO (21:39)
[2020-05-22] MEDS: Spironolactone 25 MG Tablet PO (21:39)
[2020-05-22] MEDS: PARoxetine 10 MG Tablet 30 MG PO (21:40)
[2020-05-23 05:39] VITALS: BP 149/77; PULSE 72; RESP 18; TEMP 36.6; O2SAT 92
--- NOTE | 2020-05-23 09:37 | CASEMGMT ---
Social Work Note LOIS received call from Sheila at [facility]. LOIS updated Sheila that plan is still for pt to discharge today with Hospice. LOIS informed Sheila this worker will let her know when transportation is arranged. Sheila asked how pt did overnight, LOIS reviewed handoff communication and provided update. LOIS then received call from pt's Mi. LOIS confirmed with Mi that the plan is still got pt to admit to [facility] today with Hospice. LOIS updated Mi that [facility] should be calling her to review visiting hours and to get paperwork signed. Mi states she will be in to see pt. LOIS informed Mi that this worker will arrange transportation and let her know time. Mi states understanding. Plan: [facility] today with Hospice Joanne Byrd EARLY CHILDHOOD WORKER, INSTRUMENT REPAIRER HELPER
[2020-05-23 10:21] VITALS: BP 108/65; PULSE 77; RESP 20; TEMP 36.7; O2SAT 91
[2020-05-23] MEDS: Furosemide 40 MG/4 ML Vial IV (10:58)
[2020-05-23] MEDS: Menthol/Lanolin/Calamine/Znox 113 GM Tube 1 APPLIC TOPICAL (10:59)
[2020-05-23] MEDS: Nystatin Ointment 1 APPLIC TOPICAL (10:59)
--- NOTE | 2020-05-23 11:20 | PCM.TXEXTCAR ---
- Diet 05/22/20 12:10 Diet: Regular - General Is pt able to select menu?: No - Routine Orders/Code Status Code Status: DNRCC - Wound(s) right abdomen Wound Type: Puncture left ruffin Wound Type: Skin Tear - Allergies/Procedures Done in Hospital Allergies/Adverse Reactions: Allergies acetaminophen [From Tylenol] Adverse Reaction (Unknown, Verified 05/19/20 04:52) makes ears ring - Type of Care/Length of Stay Estimated LOS: Convalescent Care Less Than 30 days Type of Care Needed: Prison/Assisted Living Rehab Potential: Poor Prognosis: Poor - Additional Orders/Day of Discharge Day of Discharge: 05/23/20 - Dietary and Speech Recommendations Dietitian Recommendations/Changes: Continue regular diet, ensure enlive w/ medpass d/t pt being in hospice care. - Follow Up Care Primary Care Physician: Ángel Sánchez PSYCHIATRIC SOCIAL WORKER, PSYCHIATRIC SOCIAL WORKER-C [Primary Care Provider] - Please Follow Up With: Monico Ambriz MD When: 1-2 weeks
--- NOTE | 2020-05-23 11:22 | DS.PCM_ITS ---
Discharge Date and Diagnosis - Problem List Patient Problems: Active and Suspected Problems (Last Updated 05/19/20 @ 05:[address] Haider Lange MD) Dyspnea (Acute) End stage liver disease (Acute) Date of Admission: 05/19/20 Date of Discharge: 05/23/20 - Primary Discharge Diagnosis Acute Problems: Active Problems (Last Updated 05/19/20 @ 05:[address] Haider Lange MD) Dyspnea (Acute) End stage liver disease (Acute) Hospital Course and Treatment Pb general surgery Operations: None Procedures: None Summary of Care Provided: The patient is a 60 year old M presents to outside hospital with shortness of breath. Patient was made hospice day prior. Patient was sent to the emergency room. Patient has end-stage liver disease and has recurrent ascites. Patient did have paracentesis which removed 4500 cc of ascites. General surgery was consulted for a palliative Pleurx catheter. Patient did not have enough ascites to had to be placed safely. Patient will follow up with general surgery as outpatient to see if that still needs to be done. Patient will be discharged back to his long-term with hospice services. [] Patient Problems: Active and Suspected Problems (Last Updated 05/19/20 @ 05:[address] Haider Lange MD) Dyspnea (Acute) End stage liver disease (Acute) - Physical Exam Vitals/I&O's: Vital Signs Temp Pulse Resp BP Pulse Ox 36.7 C 77 20 H 108/65 91 05/23/20 10:21 05/23/20 10:21 05/23/20 10:21 05/23/20 10:21 05/23/20 10:21 Oxygen Flow Rate (L/min) 2 Oxygen Delivery Method [3] Room Air Oxygen Delivery Method [2] Room Air Oxygen Delivery Method [1 ( Room Air Initial Baseline)] Oxygen Delivery Method Room Air Weight: 125.282 kg Body Mass Index (BMI) 43.2 Intake and Output for Last 24 Hours 05/21/20 05/22/20 05/23/20 23:59 23:59 23:59 Intake Total 575 / 575 950 / 950 250 / 250 Output Total 3425 / 3425 1325 / 1325 400 / 400 Balance -2850 / -2850 -375 / -375 -150 / -150 General: Confused HEENT: Atraumatic, Normocephalic Oral: Moist Mucosa, No Gingival or Mucosal Lesions/ Ulcerations Abdomen: Bowel Sounds Present, Soft, Non Tender, Non-Distended, No Hepato- splenomegaly Microbiology Past 72 Hours 05/19/20 13:45 Fluid - Paracentesis (Abd) Gram Stain - Final 05/19/20 13:45 Fluid - Paracentesis (Abd) Body Fluid Culture - Final No growth aerobically. 05/19/20 13:45 Fluid - Paracentesis (Abd) Anaerobic Culture - Preliminary No growth in 48 hours. 05/21/20 20:00 Mucosa - Nasopharyngeal SARS-CoV-2 Antigen (Rapid) - Final Laboratory Results 05/19/20 06:54: Diff Path Review Reviewed 05/19/20 14:13: Fl Pathologist Comment Reviewed 05/22/20 08:31: Blood Type B POSITIVE Current Medications Albuterol Sulfate (Albuterol 2.5 Mg/3 Ml Vial.Neb.) 2.5 mg INHALATION Q2H PRN PRN PRN Reason: WHEEZES/SOB Last Admin: 05/21/20 05:21 Dose: 2.5 mg Documented by: Calamine/Phenol (Menthol/Lanolin/Calamine/Znox 113 Gm Tube) 1 applic TOPICAL BID [facility]; Protocol Last Admin: 05/23/20 10:59 Dose: 1 applicatio Documented by: Carvedilol (Carvedilol 25 Mg Tablet) 25 mg PO BID [facility] Last Admin: 05/23/20 10:58 Dose: Not Given Documented by: Furosemide (Furosemide 40 Mg/4 Ml Vial) 40 mg IV DAILY [facility] Last Admin: 05/23/20 10:58 Dose: 40 mg Documented by: Hydralazine HCl (Hydralazine 20 Mg/Ml Vial) 5 mg IV Q6H PRN PRN PRN Reason: SBP > 180 OR DBP > 120 Last Admin: 05/19/20 21:06 Dose: 5 mg Documented by: Hydroxyzine HCl (Hydroxyzine 50 Mg/Ml Vial) 25 mg IM Q6H PRN PRN PRN Reason: AGITATION Lactulose (Lactulose 20 Gm/30 Ml Udc) 20 gm PO TID [facility] Last Admin: 05/23/20 05:42 Dose: Not Given Documented by: Lidocaine/Diphenhydr/Alum/Mg/Simeth (Bmx Liquid 180 Ml) 10 ml PO Q3H PRN PRN PRN Reason: oral burning pain Last Admin: 05/21/20 21:41 Dose: 10 ml Documented by: Multivitamins/Minerals (Multivitamins,Ther W-Minerals Tablet) 1 tablet PO DAILYCM [facility] Last Admin: 05/23/20 10:58 Dose: Not Given Documented by: Nutritional Formula (Lactose Free) (Ensure Enlive 120 Ml Liquid) 120 ml PO 4X/DAY [facility] Last Admin: 05/23/20 10:58 Dose: Not Given Documented by: Nystatin (Nystatin Ointment) 1 applic TOPICAL BID [facility]; Protocol Last Admin: 05/23/20 10:59 Dose: 1 applicatio Documented by: Pantoprazole Sodium (Pantoprazole Sodium 20 Mg Tablet) 20 mg PO DAILY [facility] Last Admin: 05/23/20 10:59 Dose: Not Given Documented by: Paroxetine HCl (Paroxetine 10 Mg Tablet) 30 mg PO QHS [facility] Last Admin: 05/22/20 21:40 Dose: 30 mg Documented by: Promethazine HCl (Promethazine 25 Mg/Ml Syringe) 6.25 mg IV Q6H PRN PRN PRN Reason: Agitation/anxiety Last Admin: 05/19/20 23:20 Dose: 6.25 mg Documented by: Senna/Docusate Sodium (Senna/Docusate Sodium 1 Tablet) 2 tablet PO BID PRN PRN PRN Reason: Constipation Sodium Chloride (0.9% Saline Lock 10 Ml Syringe) 10 - 40 ml IV UD PRN PRN Reason: SALINE FLUSH Last Admin: 05/22/20 23:41 Dose: 10 ml Documented by: Spironolactone (Spironolactone 25 Mg Tablet) 25 mg PO BID [facility] Last Admin: 05/23/20 10:58 Dose: Not Given Documented by: Discharge Diet: No Restrictions Home Medications: Medications to take at Discharge Milk Thistle 150 mg PO DAILY 05/19/20 Omeprazole 20 mg PO DAILY 05/19/20 Paroxetine HCl [Paxil] 30 mg PO QHS 05/19/20 Spironolactone [Aldactone] 25 mg PO BID 05/19/20 Albuterol Aerosols [Ventolin Aerosols] 2.5 mg INHALATION Q2H PRN PRN vial.neb. 05/22/20 Bmx Liquid 10 ml PO Q3H PRN PRN ml 05/22/20 Carvedilol [Coreg (Beta Jet)] 25 mg PO BID #0 05/22/20 Furosemide [Lasix] 40 mg PO DAILY #30 tab 05/22/20 Lactulose [Chronulac] 20 gm PO TID udc 05/22/20 Menthol/Lanolin/Calamine/Znox [Calmoseptine Ointment] 1 applic TOPICAL BID tube 05/22/20 Multivitamins,Ther W-Minerals [Multivitamin With Minerals (BKC)] 1 tab PO DAILYCM tab 05/22/20 Nystatin [Mycostatin] 1 applic TOPICAL BID tube 05/22/20 Lorazepam Intensol [Ativan Intensol] 1 mg PO TID PRN #1 bottle 05/23/20 morphine solution (IR) [Roxanol (IR oral solution)] 5 mg PO Q1H PRN PRN #1 po.syringe 05/23/20 Following Prescriptions Were Given to Patient: Lorazepam Intensol [Ativan Intensol] 1 mg PO TID PRN #1 bottle PRN Reason: Anxiety/Agitation Prescription Printed Furosemide [Lasix] 40 mg PO DAILY #30 tab morphine solution (IR) [Roxanol (IR oral solution)] 5 mg PO Q1H PRN PRN #1 po.syringe PRN Reason: pain, shortness of breath Prescription Printed Primary Care Physician: nÁgel Sánchez NP, [employer] [Primary Care Provider] - Please Follow Up With: Monico Ambriz MD When: 1-2 weeks Disposition: Asstd Living/Non-Skill NH Minutes spent on discharge:: 32 Patient Condition:: Poor Medical Necessity - Tobacco Use Smoking Status: Former smoker - Smoked when he was a teenager Meaningful Use Info Meaningful Use Diagnoses (Choose all that apply): None applicable Inpatient E&M: 21538 Disch Hosp
--- NOTE | 2020-05-23 12:03 | NURSING ---
Report called to Siomara Gibbs at this time.
--- NOTE | 2020-05-23 12:04 | CASEMGMT ---
Social Work Note Discharge is in for pt to discharge to [facility] with Hospice. LOIS faxed completed discharge paperwork to [facility] including transfer to extended care facility, signed medication list, any scripts, COVID screening tool, and PAS/RR. Original in SNF folder and copy on pt's chart. LOIS completed PAS/RR in HENS. Original in SNF folder and copy on pt's chart. LOIS accessed trip assist and arranged transportation via cot for 1:30pm. Transportation form completed and placed on SNF folder and copy on pt's chart. LOIS updated pt's Mi on transportation time. LOIS also provided Mi with Medicaid application and encouraged Mi to submit application. Mi states understanding, denied additional needs or concerns. LOIS placed a call to [facility] and spoke with Sheila. LOIS updated Sheila on transportation time. LOIS placed a call to [facility] and spoke with ZIA Manzo and updated him on transportation time. Discharge paperwork faxed to [facility]. Plan: Discharge to [facility] with Hospice services with Physician's ambulance transporting pt at 1:30pm Joanne BILLINGS, B[employer]LE [employer]
--- NOTE | 2020-05-23 12:15 | PHA.DC.MR ---
Pharmacy Service has performed discharge medication reconciliation for this patient upon transfer to [facility]. The patient's discharge medication list was reviewed for discrepancies and discrepancies were resolved. Home Medications Milk Thistle 150 mg PO DAILY 05/19/20 Omeprazole 20 mg PO DAILY 05/19/20 Paroxetine HCl [Paxil] 30 mg PO QHS 05/19/20 Spironolactone [Aldactone] 25 mg PO BID 05/19/20 Albuterol Aerosols [Ventolin Aerosols] 2.5 mg INHALATION Q2H PRN PRN vial.neb. 05/22/20 Bmx Liquid 10 ml PO Q3H PRN PRN ml 05/22/20 Carvedilol [Coreg (Beta Jet)] 25 mg PO BID #0 05/22/20 Furosemide [Lasix] 40 mg PO DAILY #30 tab 05/22/20 Lactulose [Chronulac] 20 gm PO TID udc 05/22/20 Menthol/Lanolin/Calamine/Znox [Calmoseptine Ointment] 1 applic TOPICAL BID tube 05/22/20 Multivitamins,Ther W-Minerals [Multivitamin With Minerals (BKC)] 1 tab PO DAILYCM tab 05/22/20 Nystatin [Mycostatin] 1 applic TOPICAL BID tube 05/22/20 Lorazepam Intensol [Ativan Intensol] 1 mg PO TID PRN #1 bottle 05/23/20 morphine solution (IR) [Roxanol (IR oral solution)] 5 mg PO Q1H PRN PRN #1 po.syringe 05/23/20
== END 2020-05-23 13:45 | disposition hospice, inpatient (51) ==
PROVIDERS: Internal Medicine; Surgery; Admitting Provider Hospitalist; PCP Nurse Practitioner Primary Care
PROC: (CPT 32550; principal; 2020-05-22 11:45)
DX: K72.90 Hepatic failure, unspecified without coma (principal); K70.31 Alcoholic cirrhosis of liver with ascites; G47.33 Obstructive sleep apnea (adult) (pediatric); L03.115 Cellulitis of right lower limb; L03.116 Cellulitis of left lower limb; F32.9 Major depressive disorder, single episode, unspecified; N39.0 Urinary tract infection, site not specified; D69.6 Thrombocytopenia, unspecified; G92 Toxic encephalopathy; F10.20 Alcohol dependence, uncomplicated; I87.8 Other specified disorders of veins; E11.621 Type 2 diabetes mellitus with foot ulcer; E66.01 Morbid (severe) obesity due to excess calories; L98.499 Non-pressure chronic ulcer of skin of other sites with unspecified severity; Z87.891 Personal history of nicotine dependence; Z79.899 Other long term (current) drug therapy; Z68.41 Body mass index [BMI] 40.0-44.9, adult; E83.39 Other disorders of phosphorus metabolism; E83.42 Hypomagnesemia; E87.6 Hypokalemia; Z53.8 Procedure and treatment not carried out for other reasons
CPT/HCPCS: 32557; 36415; 49083; 71045; 80048; 80053; 82945; 83735; 84100; 84157; 85025; 85610; 86900; 86901; 86927; 87070; 87075; 87205; 87426; 88108; 88305; 88313; 89050; 94640; 96361; 96365; 96366; 96367; 96372; 96375; 96376; 97162; 97802; 99218; J7040; A4216; G0378; G0379; J1940; J3490